=== PATIENT | male | born 1930 | race Caucasian/White ===

== ENCOUNTER 2016-08-28 14:03 | Emergency (ER) | payer MEDICARE ==
[~2016-08-28] VITALS: Ht 165.1 cm; Wt 75.0 kg
[~2016-08-28 14:03] MED LIST: ALFU10TA2 PO; DIVA500T7 PO; FINA5TAB4 PO; FOLI-49 PO; FURO80TA3 PO; LEVO25TA53 PO; POTA20TA96 PO; PROP10DR2 BOTH EYES; SERT-165 PO; SIMV40TA2 PO; TRAV4OP25 BOTH EYES; TRAZ50TA18 PO
[2016-08-28 14:18] VITALS: Ht 165.1 cm; Wt 75.0 kg
[2016-08-28] MEDS ORDERED: DIPHTH/TET/ACEL PERTUSS (ADULT) 0.5 ML VIAL IM* ONE (15:00)
[2016-08-28] MEDS ORDERED: HYDROCODONE/APAP (5/325) TAB PO ONE (15:00)
[2016-08-28] MEDS ORDERED: LIDOCAINE 1% (MDV) 20 ML INJ SC ONE (15:00)
--- NOTE | 2016-08-28 16:53 | RADRPT ---
PROCEDURE: CT brain without contrast CLINICAL INDICATION: Fall, head pain, abrasions TECHNIQUE: CT of the brain without contrast performed on a multidetector CT scanner, with multiplan ar reformats. One or more of the following dose reduction techniques were used: Automated exposure control, adjustment in mA and / or kV according to patient size, use of iterative reconstructive carlos hnique. CTDIvol = 39 mGy; DLP = 555 mGy-cm. COMPARISON: 07/01/2016 FINDINGS: No acute intracranial hemorrhage is identified. No extra-axial fluid collection is seen. There is no mass effect. No midline shift is identified. Ventricles and sulci are mild to moderate enlarged compatible with volume loss. There are minimal areas of hypodensity in the periventricular - deep white matter which are nonspeci fic but suggestive of chronic small vessel ischemic changes. Hernandez-white differentiation is preserve d. Atherosclerotic calcifications of the intracranial internal carotid arteries are noted. Right mastoidectomy defect again noted. Mild partial bilateral ethmoid air cell opacification noted . IMPRESSION: 1. No evidence of acute intracranial pathology. 2. Mild to moderate volume loss, with minimal chronic small vessel ischemic changes. RPTAT: VV .Abdifatah Rose MD, Date Time Electronically viewed and signed by .Abdifatah Rose MD, on 08/28/2016 16:53 .O/
--- NOTE | 2016-08-28 16:57 | RADRPT ---
PROCEDURE: Left hand series CLINICAL INDICATION: Left hand pain. Laceration TECHNIQUE: AP, oblique, and lateral views of the left hand were obtained. COMPARISON: None FINDINGS: No acute fracture or dislocations are seen. Erosive osteoarthritic changes are seen of the second t hrough fifth PIP and DIP joints as well as the first interphalangeal joint. The remaining articular surfaces are normal. No soft tissue abnormalities are seen. IMPRESSION: 1. No acute fracture or dislocation. 2. Polyarticular erosive osteoarthritis as described above. RPTAT: HPNM Physician Masha Date Time Electronically viewed and signed by Physician Masha on 08/28/2016 16:56 /
--- NOTE | 2016-08-28 16:58 | ERD ---
ER Documentation Chief Complaint Date/Time DATE: 08/28/16 Chief Complaint Left hand pain/laceration s/p ground level mechanical fall HPI The patient is an 85-year-old male who presents to the Emergency Department with complaint of left hand pain and laceration s/p mechanical ground level fall. The patient reports that he was was walking along the sidewalk, when he looked away at a man walking quickly in front of him. In doing so, he didn't realize that there was an irregularity in the cement, with a crack, and he tripped and fell forward, onto his outstretched hands, and hitting his face. He had no loss of consciousness, no syncope, no seizure-like activity. No headache, dizziness or weakness. He does note presence of a flap laceration to the left palm, prompting his visit to the ED. The pain rates his current pain as 5/10, and describes it as aching in nature. It is localized to the site of the laceration. He denies any numbness, weakness of tingling of the distal extremities. Denies restricted range of motion. He denies any nausea or vomiting. Denies neck pain or neck stiffness. Denies chest pain, palpitations or shortness of breath. He has no other complaints at this time. Tetanus status unknown. ROS All systems reviewed and are negative except as per history of present illness. Medications Home Meds Reported Medications Potassium Chloride* (Potassium Chloride*) 20 Meq Tablet.er, 20 MEQ PO DAILY, TAB.SA 07/01/16 Levothyroxine Sodium* (Levothyroxine Sodium*) 25 Mcg Tablet, 25 MCG PO BEFORE BREAKFAST, #30 TAB 04/02/16 Alfuzosin Hcl* (Alfuzosin Hcl*) 10 Mg Tab.er.24h, 10 MG PO DAILY, #30 TAB.SA 03/14/16 Finasteride* (Finasteride*) 5 Mg Tablet, 5 MG PO DAILY, TAB 03/14/16 Furosemide* (Furosemide*) 80 Mg Tablet, 80 MG PO DAILY, #30 TAB 03/14/16 Folic Acid* (Folic Acid*) 1 Mg Tablet, 1 MG PO BID, TAB 03/14/16 Propylene Glycol/Peg 400 (SYSTANE GEL EYE DROPS) 10 Ml Drops.gel, 1 DROP BOTH EYES QID, #1 BOTTLE 03/14/16 Travoprost* (Travatan*) 0.004%-2.5 Ml Opht, 1 DROP BOTH EYES QHS, #1 BOTTLE 03/14/16 Simvastatin* (Zocor*) 40 Mg Tablet, 40 MG PO QHS, #30 TAB 03/14/16 Trazodone Hcl* (Trazodone Hcl*) 50 Mg Tablet, 50 MG PO HS, TAB 06/24/14 Sertraline Hcl* (Sertraline Hcl*) 100 Mg Tablet, 200 MG PO QHS, TAB 06/24/14 Divalproex Sodium* (Depakote*) 500 Mg Tablet.dr, 1000 MG PO QHS, TAB 06/24/14 Allergies Allergies: Coded Allergies: Sulfa (Sulfonamide Antibiotics) (Unverified Allergy, Severe, HIVES, 07/01/16 ) PMhx/Soc History of Surgery: Yes (TONSILS, ADNOIDS,KIDNEY STONE, STENT) Anesthesia Reaction: No Hx Neurological Disorder: No Hx Respiratory Disorders: No Hx Cardiac Disorders: No Hx Psychiatric Problems: Yes (BIPOLAR) Hx Miscellaneous Medical Probl: Yes (frequent falls, bipolar d/o,prostatism, ahterosclrotic dse,kideny stone kelli) Hx Alcohol Use: No Hx Substance Use: No Hx Tobacco Use: No Physical Exam Vitals Vital Signs Date Time Temp Pulse Resp B/P Pulse Ox O2 Delivery O2 Flow Rate FiO2 08/28/16 17:50 97.9 60 18 152/72 99 Room Air 08/28/16 14:18 98.2 66 20 139/65 97 Physical Exam GENERAL: Well-developed, well-nourished, in no acute distress HEENT: Head is normocephalic. No hematomas. Small superficial abrasions to philtrum region. No scleral pallor or icterus. Pupils equal, round and reactive to light. Extraocular movements intact. Conjunctiva pink. No raccoon eyes. No nasal CSF leak. No merritt sign. No hemotympanum. Moist mucous membranes. No pharyngeal erythema or exudates. Uvula is midline. No dental mobility or avulsion. No intraoral trauma. NECK: Supple. No tenderness. No c-spine tenderness/step offs. RESPIRATORY: Lungs are clear to auscultation bilaterally. Equal breath sounds. Normal expiratory effort. CARDIOVASCULAR: Regular rate and rhythm. No murmurs. BACK: No midline tenderness. EXTREMITIES: No clubbing, cyanosis, or edema. Normal skin perfusion. Moving all extremities. No focal swelling or erythema. Distal pulses are palpable, 2+ bilaterally. Capillary refill is less than 2 seconds. NEUROLOGIC: The patient is alert, awake, and oriented x 3. No focal neurologic deficits. Cranial nerves are grossly intact. Speech is normal. Motor and sensation grossly intact. Patient ambulatory in ED. INTEGUMENT: 2 cm flap laceration to the palm of the left hand. Few superficial abrasions to the palm of the left hand. Superficial abrasion to the area of the philtrum. No intraoral lacerations or abrasions. PSYCHIATRIC: Appropriate; Cooperative. Results 24 hrs Current Medications Medications (Trade) Dose Ordered Sig/Saul Route PRN Reason Start Time Stop Time Status Last Admin Dose Admin Diphtheria/ Tetanus/Acell Pertussis (Adacel) 0.5 ml ONCE ONCE IM* 08/28/16 15:00 08/28/16 15:01 DC 08/28/16 15:02 Lidocaine (Xylocaine 1% (Mdv) 20 ml) 20 ml ONCE ONCE SC 08/28/16 15:00 08/28/16 15:01 DC Acetaminophen/ Hydrocodone Bitart ([place] (5/325)) 1 tab ONCE ONCE PO 08/28/16 15:00 08/28/16 15:01 DC 08/28/16 15:00 Procedures/MDM DIAGNOSTIC TESTS AND INTERPRETATION: PROCEDURE: CT brain without contrast CLINICAL INDICATION: Fall, head pain, abrasions TECHNIQUE: CT of the brain without contrast performed on a multidetector CT scanner, with multiplanar reformats. One or more of the following dose reduction techniques were used: Automated exposure control, adjustment in mA and / or kV according to patient size, use of iterative reconstructive technique. CTDIvol = 39 mGy; DLP = 555 mGy-cm. COMPARISON: 07/01/2016 FINDINGS: No acute intracranial hemorrhage is identified. No extra-axial fluid collection is seen. There is no mass effect. No midline shift is identified. Ventricles and sulci are mild to moderate enlarged compatible with volume loss. There are minimal areas of hypodensity in the periventricular - deep white matter which are nonspecific but suggestive of chronic small vessel ischemic changes. Hernandez-white differentiation is preserved. Atherosclerotic calcifications of the intracranial internal carotid arteries are noted. Right mastoidectomy defect again noted. Mild partial bilateral ethmoid air cell opacification noted. IMPRESSION: 1. No evidence of acute intracranial pathology. 2. Mild to moderate volume loss, with minimal chronic small vessel ischemic changes. .Abdifatah Rose MD, Date Time Electronically viewed and signed by .Abdifatah Rose MD, on 08/28/2016 16:53 PROCEDURE: CT cervical spine without contrast. CLINICAL INDICATION: Neck trauma/injury TECHNIQUE: CT of the cervical spine without contrast was performed on a multidetector CT scanner, with multiplanar reformats. One or more of the following dose reduction techniques were used: Automated exposure control, adjustment in mA and / or kV according to patient size, use of iterative reconstructive technique. CTDIvol = 22 mGy and DLP = 415 mGy-cm. COMPARISON: 07/01/2016 FINDINGS: No fracture or dislocation is identified. There is preservation of the lordosis of the cervical spine. There is trace anterolisthesis at C4-5, and C7- T1. Vertebral bodies are grossly maintained in height. There are atlantoaxial joint degenerative changes, multilevel anterior spondylosis, and disk space narrowing, more pronounced, severe at C3-4 posteriorly and at C6-7. C2-3: There is a posterior disk/osteophyte and ligamentum flavum hypertrophy. There is mild central canal stenosis. There are uncovertebral osteophytes and facet arthropathy with mild right, mild-moderate left foraminal narrowing. C3-4: There is a posterior disk/osteophyte and ligamentum flavum hypertrophy. There is moderate central canal stenosis. There are uncovertebral osteophytes and facet arthropathy with moderate to severe bilateral foraminal narrowing. C4-5: There is a posterior disk/osteophyte and ligamentum flavum hypertrophy. There is mild to moderate central canal stenosis. There are uncovertebral osteophytes and facet arthropathy with moderate to severe right foraminal narrowing. C5-6: There is a posterior disk/osteophyte. No central canal stenosis is identified. There are uncovertebral osteophytes and facet arthropathy with moderate to severe right, mild left foraminal narrowing. C6-7: There is a posterior disk/osteophyte. No central canal stenosis is identified. There are uncovertebral osteophytes and facet arthropathy with mild right, moderate left foraminal narrowing. C7-T1: There is no central canal stenosis. There is facet arthropathy. There is no foraminal narrowing. IMPRESSION: 1. No fracture/dislocation identified. 2. Cervical spondylosis with multilevel mild to moderate central canal stenoses , and multilevel foraminal narrowing detailed above. .Abdifatah Rose MD, Date Time Electronically viewed and signed by .Abdifatah Rose MD, on 08/28/2016 17:00 PROCEDURE: Left wrist series CLINICAL INDICATION: Left wrist pain. Laceration TECHNIQUE: AP, oblique, and lateral views of the left wrist were obtained. COMPARISON: None FINDINGS:No acute fracture or dislocations are seen. The osseous structures are well mineralized. The articular surfaces are normal. No soft tissue abnormalities are seen. IMPRESSION:Unremarkable left wrist series. Physician Masha Date Time Electronically viewed and signed by Physician Masha on 08/28/2016 16 :58 PROCEDURE: Left hand series CLINICAL INDICATION: Left hand pain. Laceration TECHNIQUE: AP, oblique, and lateral views of the left hand were obtained. COMPARISON: None FINDINGS:No acute fracture or dislocations are seen. Erosive osteoarthritic changes are seen of the second through fifth PIP and DIP joints as well as the first interphalangeal joint. The remaining articular surfaces are normal. No soft tissue abnormalities are seen. IMPRESSION: 1. No acute fracture or dislocation. 2. Polyarticular erosive osteoarthritis as described above. Physician Masha Date Time Electronically viewed and signed by Physician Masha on 08/28/2016 16 :56 PROCEDURE: Right hand series CLINICAL INDICATION: Right hand pain. Laceration TECHNIQUE: AP, lateral, and oblique views of the right hand were obtained COMPARISON: None FINDINGS:No acute fracture or dislocation is seen. Erosive osteoarthritic changes are seen of the second through fifth PIP and DIP joints as well as the first interphalangeal joint. The soft tissue structures are intact. IMPRESSION: 1. No acute fracture or dislocation. 2. Polyarticular erosive osteoarthritic changes as detailed above Physician Masha Date Time Electronically viewed and signed by Physician Masha on 08/28/2016 16 :59 PROCEDURE NOTE: Laceration repair. INDICATIONS: 2 cm flap laceration to the palmar region of the left hand. CONSENT: Consent was obtained from the patient prior to the procedure. Indications, risks and benefits were explained at length. PROCEDURAL SUMMARY: A time out protocol was performed prior to initiating the procedure. The patient was positioned appropriately. The site was anesthetized with 4 mL of 1% lidocaine without epinephrine. Normal saline and Betadine were used for wound irrigation. The wound was then explored, and no foreign body visualized, no tendon injury. The area was prepared and draped in the usual sterile manner with the wound exposed. Four 4-0 simple interrupted Prolene sutures are placed with good wound closure and good wound approximation. Bleeding was minimal. The patient tolerated the procedure well without complications. The wound was dressed with bacitracin and sterile gauze. Standard post procedure care was explained and return precautions were given. On re-evaluation, the patient was resting comfortable with no pain localized to the site of injury. He was neurovascularly intact post-procedure. MEDICAL DECISION MAKING: The patient is an 85-year-old male presenting to the Emergency Department with a left hand laceration and facial abrasions s/p mechanical fall. Otherwise, the patient had no significant deformity, step-offs , altered mental status, or neurologic deficits on physical examination. CT head performed revealed no acute intracranial hemorrhage. No clinical evidence of significant head injury, basilar skull fracture, intracranial bleeding, spinal cord injury or any other emergent medical condition. CT C-spine with no acute findings. X-ray imaging with no fractures, dislocations or subluxations. The patient's condition was stable throughout their stay in the emergency department without any neurologic deficits present. Upon re-evaluation, the patient reports no new complaints. The patient's hand laceration was stapled. He had good wound closure and wound approximation, and tolerated the procedure well. The patient was neurovascularly and neurologically intact prior to and status post laceration repair. Standard post-procedure care was explained to the patient at length. Upon my review and interpretation of the patient's presentation, I believe that the patient's symptoms are most consistent with left hand laceration, facial abrasions, closed head injury s/p mechanical fall. At this time the patient is in stable condition, and no signs of altered mental status, and therefore can be discharged home with strict return precautions for signs of deteriorating or worsening condition, including vomiting, altered mental status, neurologic deficit, headache, persistent fever above 100.4 F, loss of consciousness, syncope, deformities, seizure. The patient is instructed to follow up with his primary care provider within 1-2 days for wound check, reevaluation and further management, and suture removal in 14 days, or return to the ER sooner for any new or worsening symptoms. I shared my medical decision making and plan with the patient and he verbally understands and agrees with the plan for further observation and care as an outpatient. At the time of discharge, all questions were answered. Departure Diagnosis: Primary Impression: Laceration of left hand Encounter type: initial encounter Qualified Code: S61.412A - Laceration of left hand, initial encounter Additional Impressions: Fall Encounter type: initial encounter Qualified Code: W19.XXXA - Fall, initial encounter Facial abrasion Encounter type: initial encounter Qualified Code: S00.81XA - Facial abrasion , initial encounter Condition: Stable Patient Instructions: Caring for Your Wound, Fall, Mechanical, Laceration, Hand , Wound Care Additional Instructions: Follow up in 2 days for wound check, reevaluation and further management. Return to the ED sooner for any new or worsening symptoms. ARIS SWARTZ PA-C Aug 28, 2016 16:58
--- NOTE | 2016-08-28 16:58 | RADRPT ---
PROCEDURE: Left wrist series CLINICAL INDICATION: Left wrist pain. Laceration TECHNIQUE: AP, oblique, and lateral views of the left wrist were obtained. COMPARISON: None FINDINGS: No acute fracture or dislocations are seen. The osseous structures are well mineralized. The artic ular surfaces are normal. No soft tissue abnormalities are seen. IMPRESSION: Unremarkable left wrist series. RPTAT: HPNM Physician Masha Date Time Electronically viewed and signed by Brendan Guido Physician on 08/28/2016 16:58 /
--- NOTE | 2016-08-28 17:00 | RADRPT ---
PROCEDURE: CT cervical spine without contrast. CLINICAL INDICATION: Neck trauma/injury TECHNIQUE: CT of the cervical spine without contrast was performed on a multidetector CT scanner, w ith multiplanar reformats. One or more of the following dose reduction techniques were used: Automa alexander exposure control, adjustment in mA and / or kV according to patient size, use of iterative recon structive technique. CTDIvol = 22 mGy and DLP = 415 mGy-cm. COMPARISON: 07/01/2016 FINDINGS: No fracture or dislocation is identified. There is preservation of the lordosis of the cervical spi ne. There is trace anterolisthesis at C4-5, and C7-T1. Vertebral bodies are grossly maintained in height. There are atlantoaxial joint degenerative changes, multilevel anterior spondylosis, and di sk space narrowing, more pronounced, severe at C3-4 posteriorly and at C6-7. C2-3: There is a posterior disk/osteophyte and ligamentum flavum hypertrophy. There is mild central canal stenosis. There are uncovertebral osteophytes and facet arthropathy with mild right, mild-mo derate left foraminal narrowing. C3-4: There is a posterior disk/osteophyte and ligamentum flavum hypertrophy. There is moderate daren tral canal stenosis. There are uncovertebral osteophytes and facet arthropathy with moderate to sev ere bilateral foraminal narrowing. C4-5: There is a posterior disk/osteophyte and ligamentum flavum hypertrophy. There is mild to mode rate central canal stenosis. There are uncovertebral osteophytes and facet arthropathy with moderat e to severe right foraminal narrowing. C5-6: There is a posterior disk/osteophyte. No central canal stenosis is identified. There are unc overtebral osteophytes and facet arthropathy with moderate to severe right, mild left foraminal narr owing. C6-7: There is a posterior disk/osteophyte. No central canal stenosis is identified. There are un covertebral osteophytes and facet arthropathy with mild right, moderate left foraminal narrowing. C7-T1: There is no central canal stenosis. There is facet arthropathy. There is no foraminal narro wing. IMPRESSION: 1. No fracture/dislocation identified. 2. Cervical spondylosis with multilevel mild to moderate central canal stenoses, and multilevel for aminal narrowing detailed above. RPTAT: VV .Abdifatah Rose MD, MD Date Time Electronically viewed and signed by .Abdifatah Rose MD, on 08/28/2016 17:00 .O/
--- NOTE | 2016-08-28 17:00 | RADRPT ---
PROCEDURE: Right hand series CLINICAL INDICATION: Right hand pain. Laceration TECHNIQUE: AP, lateral, and oblique views of the right hand were obtained COMPARISON: None FINDINGS: No acute fracture or dislocation is seen. Erosive osteoarthritic changes are seen of the second thr ough fifth PIP and DIP joints as well as the first interphalangeal joint. The soft tissue structure s are intact. IMPRESSION: 1. No acute fracture or dislocation. 2. Polyarticular erosive osteoarthritic changes as detailed above. RPTAT: HPNM Physician Masha Date Time Electronically viewed and signed by Physician Masha on 08/28/2016 16:59 /
[2016-08-28 17:50] VITALS: BP 152/72; PULSE 60; RESP 18; TEMP 97.9
== END 2016-08-28 17:50 | disposition home or self-care (01) ==
LOC: FTE 14:03
DX: S61.412A Laceration without foreign body of left hand, initial encounter (principal); S00.81XA Abrasion of other part of head, initial encounter; E03.9 Hypothyroidism, unspecified; R51 Headache; W18.39XA Other fall on same level, initial encounter; Y92.9 Unspecified place or not applicable; Z23 Encounter for immunization
CPT/HCPCS: 70450; 72125; 90471; 90715

== ENCOUNTER 2016-09-01 02:41 | Emergency (ER) | payer MEDICARE ==
[~2016-09-01] VITALS: Ht 165.1 cm; Wt 78.5 kg
[2016-09-01 02:51] VITALS: Ht 165.1 cm; Wt 78.5 kg
[2016-09-01] MEDS ORDERED: CLIN-73 PO (04:30)
--- NOTE | 2016-09-01 04:30 | ERD ---
ER Documentation Chief Complaint Date/Time DATE: 09/01/16 TIME: 04:26 Chief Complaint left hand wound recheck for sutures HPI 85-year-old male is here in emergency department for a wound check, patient had sutures placed on the left hand, patient denies any discharge from the wound, patient denies any fever or chills. Patient just saw some redness on affected area is worried about it. She denies any numbness or tingling. ROS All systems reviewed and are negative except as per history of present illness. Medications Home Meds Reported Medications Potassium Chloride* (Potassium Chloride*) 20 Meq Tablet.er, 20 MEQ PO DAILY, TAB.SA 07/01/16 Levothyroxine Sodium* (Levothyroxine Sodium*) 25 Mcg Tablet, 25 MCG PO BEFORE BREAKFAST, #30 TAB 04/02/16 Alfuzosin Hcl* (Alfuzosin Hcl*) 10 Mg Tab.er.24h, 10 MG PO DAILY, #30 TAB.SA 03/14/16 Finasteride* (Finasteride*) 5 Mg Tablet, 5 MG PO DAILY, TAB 03/14/16 Furosemide* (Furosemide*) 80 Mg Tablet, 80 MG PO DAILY, #30 TAB 03/14/16 Folic Acid* (Folic Acid*) 1 Mg Tablet, 1 MG PO BID, TAB 03/14/16 Propylene Glycol/Peg 400 (SYSTANE GEL EYE DROPS) 10 Ml Drops.gel, 1 DROP BOTH EYES QID, #1 BOTTLE 03/14/16 Travoprost* (Travatan*) 0.004%-2.5 Ml Opht, 1 DROP BOTH EYES QHS, #1 BOTTLE 03/14/16 Simvastatin* (Zocor*) 40 Mg Tablet, 40 MG PO QHS, #30 TAB 03/14/16 Trazodone Hcl* (Trazodone Hcl*) 50 Mg Tablet, 50 MG PO HS, TAB 06/24/14 Sertraline Hcl* (Sertraline Hcl*) 100 Mg Tablet, 200 MG PO QHS, TAB 06/24/14 Divalproex Sodium* (Depakote*) 500 Mg Tablet.dr, 1000 MG PO QHS, TAB 06/24/14 Allergies Allergies: Coded Allergies: Sulfa (Sulfonamide Antibiotics) (Unverified Allergy, Severe, HIVES, 07/01/16 ) PMhx/Soc History of Surgery: Yes (pacemaker, tonsillectomy, kidney stone removed) Anesthesia Reaction: No Hx Neurological Disorder: No Hx Respiratory Disorders: No Hx Cardiac Disorders: No Hx Psychiatric Problems: Yes (BIPOLAR) Hx Miscellaneous Medical Probl: Yes (frequent falls, bipolar d/o,prostatism, ahterosclrotic dse,kideny stone kelli) Hx Alcohol Use: No Hx Substance Use: No Hx Tobacco Use: No Smoking Status: Never smoker FmHx Family History: No coronary disease, No diabetes, No other Physical Exam Vitals Vital Signs Date Time Temp Pulse Resp B/P Pulse Ox O2 Delivery O2 Flow Rate FiO2 09/01/16 02:51 98.5 65 18 146/70 98 Physical Exam GENERAL: The patient is well developed and appropriate for usual state of health, in no apparent distress. CHEST: Clear to auscultation bilaterally. There are no rales, wheezes or rhonchi. HEART: Regular rate and rhythm. No murmurs, clicks, rubs or gallops. No S3 or S4. ABDOMEN: Soft, nontender and nondistended. Good bowel sounds. No rebound or guarding. No gross peritonitis. No gross organomegaly or masses. No Morgan sign or McBurney point tenderness. BACK: No midline or flank tenderness. EXTREMITIES: Equal pulses bilaterally. There is no peripheral clubbing, cyanosis or edema. No focal swelling or erythema. Full range of motion. Grossly neurovascularly intact. NEURO: Alert and oriented. Cranial nerves 2-12 intact. Motor strength in all 4 extremities with 5/5 strength. Sensation grossly intact. Normal speech and gait. SKIN: Noted left hand wound sutures in place, with mild redness on affected area , patient also has a wound on the left leg area which has mild erythema and some discharge from the area, no fluctuance noted. There is no apparent rash or petechia. The skin is warm and dry. HEMATOLOGIC AND LYMPHATIC: There is no evidence of excessive bruising or lymphedema. No gross cervical, axillary, or inguinal lymphadenopathy. Procedures/MDM Medical decision making: Patient's wound is healing well, sutures to be removed in 4-5 days. Patient has a wound on the left lower leg area is infected, will be given antibiotics for this. Patient does not have any symptoms of any neurovascular complaints. No cellulitis. No symptoms of compartment syndrome. No symptoms of gaping of the wound. Patient was given for clindamycin to help with symptoms, advised about the primary care doctor in 4 days for suture removal. Patient was advised to return to emergency department for worsening symptoms Departure Diagnosis: Primary Impression: Encounter for wound re-check Additional Impressions: Hand laceration Encounter type: initial encounter Laterality: left Qualified Code: S61.412A - Hand laceration, left, initial encounter Wound infection Condition: Stable Patient Instructions: Wound Care GIBRAN JOHANSEN NP Sep 01, 2016 04:30
== END 2016-09-01 05:10 | disposition home or self-care (01) ==
LOC: FTE 02:41
DX: Z48.01 Encounter for change or removal of surgical wound dressing (principal); S61.412D Laceration without foreign body of left hand, subsequent encounter; T81.4XXA Infection following a procedure, initial encounter; X58.XXXD Exposure to other specified factors, subsequent encounter; Y62.9 Failure of sterile precautions during unspecified surgical and medical care

== ENCOUNTER 2016-09-12 05:46 | Emergency (ER) | payer MEDICARE ==
[~2016-09-12] VITALS: Ht 162.6 cm; Wt 76.0 kg
[~2016-09-12 05:46] MED LIST changes: +CLIN-73 PO
[2016-09-12 05:48] VITALS: Ht 162.6 cm; Wt 76.0 kg
--- NOTE | 2016-09-12 08:03 | ERD ---
DATE OF SERVICE: HISTORY OF PRESENT ILLNESS: The patient is an 85-year-old male coming in for a wound check and kelli claudine of stitches of his palm. The patient had sutures placed 8 days ago after he sustained a lacerat ion to his palm. He has normal range of motion and has not had any pain at the site. PAST MEDICAL HISTORY: Denies any other medical problems. ALLERGIES: SULFA MEDICATIONS. SURGICAL HISTORY: Denies. SOCIAL HISTORY: Denies. REVIEW OF SYSTEMS: A 12-point review of systems was done. Refer to HPI for positives, all other sy stems are negative. PHYSICAL EXAMINATION: VITAL SIGNS: Temperature is 96.8, pulse 88, blood pressure is 126/70, respiratory 18, O2 saturation 98% on room air. Pain intensity of 0/10. GENERAL: The patient is well appearing, well nourished, in no acute distress. CHEST: Clear to auscultation bilaterally. There are no rales, wheezes or rhonchi. HEART: Regular rate and rhythm. No murmurs, clicks, rubs or gallops. No S3 or S4. EXTREMITIES: Equ al pulses bilaterally. There is no peripheral clubbing, cyanosis or edema. No focal swelling or eryt prashant. Full range of motion. Grossly neurovascularly intact. NEURO: Alert and oriented. Cranial nerves 2-12 intact. Motor strength in all 4 extremities with 5/5 strength. Sensation grossly intact. Normal speech and gait. Babinski negative. DTR 2+ throughout. SKIN: There is a healing laceration noted on his left palm. Four simple interrupted sutures are in place. There is no dehiscence, no surrounding erythema, no purulence. EMERGENCY ROOM COURSE: The site was cleaned. Four stitches were removed without complication. Pat ient tolerated the procedure well. The site was re-cleaned and Band-Aid applied. DIAGNOSIS: Suture removal. MEDICAL DECISION MAKING: I have a low suspicion for tendon or ligament injury, a low suspicion for deep abscess or deep infection, a low suspicion for neuro deficit. DISCHARGE: The patient was discharged stable. The patient was told if symptoms change or worsen, t o return to the ER. Otherwise all other questions were answered at the time of discharge. Discharg e summary was given at the time of departure. Patient understood and complied with the plan. Dictated By: BRISSA NAJERA jeremy CORTES/ROXY Conf#: [id number] DID#: [id number]
== END 2016-09-12 07:40 | disposition home or self-care (01) ==
LOC: FTE 05:46
DX: Z48.02 Encounter for removal of sutures (principal); E03.9 Hypothyroidism, unspecified; Z95.0 Presence of cardiac pacemaker
CPT/HCPCS: 99281

== ENCOUNTER 2016-10-22 13:05 | Inpatient (IN) | payer MEDICARE, BC ==
[~2016-10-22] VITALS: Ht 165.1 cm; Wt 82.0 kg
[2016-10-22 14:16] VITALS: BP 133/62; RESP 19
[2016-10-22] MEDS ORDERED: HYDROCODONE/APAP (10/325) TAB PO PRN ×2 (15:30)
[2016-10-22 15:50] VITALS: Ht 165.1 cm; Wt 82.0 kg
[2016-10-22] MEDS ORDERED: PIPER-TAZO 3.375 GM IV (PMX) 100 ML IVPB SCH ×2 (16:15→18:00)
[2016-10-22] MEDS ORDERED: PATIENT'S OWN MEDICATION BOTH EYES PRN ×2 (17:00)
[2016-10-22] MEDS: POTASSIUM CHLORIDE (SR) 20 MEQ TAB PO SCH (17:00)
[2016-10-22] MEDS ORDERED: VANCOMYCIN 1 GM (PMX) 250 ML IVPB SCH (17:00)
--- NOTE | 2016-10-22 17:25 | HP ---
DATE OF ADMISSION: 10/22/2016 IDENTIFYING DATA: The patient is an 85-year-old male admitted to the hospital with lower extremity cellulitis. HISTORICAL EVENTS: The patient has been followed in excess of 1 year for lower extremity swelling a t the wound care center. He was evaluated today when he presented with trauma to the right lower ex tremity. This occurred about 1 week ago with redness that ensued. It was felt that he had lower ex tremity cellulitis and hospitalization was recommended. He denies cough, wheezing and substernal ch est pain. He has had unchanged exertional dyspnea without radiating neck, arm or jaw discomfort. H e denies nausea, vomiting, abdominal pain, unusual constipation or diarrhea and denies symptoms of g astrointestinal bleeding. review of systems reveals mild difficulty initiating his urinary strea m without dysuria, flank pain, fever or chills. PAST MEDICAL HISTORY: Includes bipolar disorder, rosacea, history of prostatism, known coronary ar vasile disease, GERD, lower extremity edema, history of sleep apnea, edema and prior noted lower extre mity cellulitis and history of kidney stones. FAMILY HISTORY: Positive for bone cancer. SOCIAL HISTORY: He does smoke. MEDICATIONS: Include: 1. B12 at 100 mcg per day. 2. Trazodone 50 mg at night. 3. Protonix 40 mg a day. 4. Simvastatin 40 mg a day. 5. Zoloft 200 mg per day. 6. Depakote 500 mg 2 tablets at bedtime. 7. Finasteride 5 per day. 8. Lasix 20 mg per day. 9. K-Dur 20 mg per day. ALLERGIES: SULFA. PHYSICAL EXAMINATION: GENERAL: Elderly male in no acute distress. VITAL SIGNS: BP 122/80, pulse 70, respirations are 20, he was afebrile. EYES: Extraocular muscles were full. NOSE, MOUTH, AND THROAT: Normal. NECK: Supple. There was no jugular venous distention, thyroid enlargement or adenopathy. LUNGS: Reduced breath sounds without rales, wheezes or rhonchi. HEART: Rhythm regular, no murmur. No third or fourth sound. ABDOMEN: Nontender. Liver and spleen were not palpable. No masses or tenderness were noted. EXTREMITIES: Revealed some brawny edema. The skin was denuded involving the right tibia with surro unding erythema. There was no less striking dusky erythema involving the left lower extremity. Iain ves were nontender. Dorsalis pedis pulses were 2+. IMPRESSION: 1. Trauma to the right lower extremity and related soft tissue injury and cellulitis. 2. Bipolar disorder. 3. History of gastroesophageal reflux disease. PLAN: Will change his antibiotic regimen to vancomycin. Infectious disease will see. Venous vascu lar studies of the lower extremity will be obtained and will give Lovenox for DVT prophylaxis. Dictated By: DEEPIKA PINON/ROXY Conf#: [id number] DID#: [id number]
[2016-10-22] MEDS ORDERED: ZOLPIDEM 5 MG TAB PO PRN (17:30)
[2016-10-22] MEDS ORDERED: ACETAMINOPHEN 325 MG TAB PO PRN (17:30)
[2016-10-22] MEDS ORDERED: DOCUSATE SODIUM 100 MG CAP PO PRN (17:30)
[2016-10-22] MEDS ORDERED: ONDANSETRON 4 MG TAB PO PRN (17:30)
[2016-10-22] MEDS ORDERED: NACL 0.9% 3 ML SYG IV SCH (17:30)
[2016-10-22] MEDS ORDERED: SYSTANE GEL DROPS BOTH EYES PRN (17:37)
[2016-10-22] MEDS ORDERED: CYANOCOBALAMIN 100 MCG TAB PO ONE (18:00)
[2016-10-22] MEDS ORDERED: VANCOMYCIN IV PER PHARMACY XX SCH (18:00)
[2016-10-22] MEDS: FUROSEMIDE 40 MG TAB PO SCH (18:21)
[2016-10-22] MEDS: CHOLECALCIFEROL 2,000 UNIT CAP PO SCH (18:27)
[2016-10-22] MEDS ORDERED: CARBOXYMETHYLCELLULOSE 0.5% 0.1 ML OPH BOTH EYES PRN (18:30)
[2016-10-22] MEDS: VANCOMYCIN 1.5 GM in SOD CHLORIDE 0.9% 250 ML IVPB ONE ×2 (18:32→20:05)
[2016-10-22 19:52] VITALS: BP 122/60; RESP 18
--- NOTE | 2016-10-22 20:12 | RADRPT ---
PROCEDURE: US Lower extremity Venous. CLINICAL INDICATION: BLE callulites TECHNIQUE: Multiple sonographic images of the bilateral lower extremity deep venous system was obt ained utilizing grayscale, color-flow, compressive sonography and doppler imaging with augmentation. The images were reviewed on a PACS workstation. COMPARISON: March 14, 2016 FINDINGS: There is normal compressibility and flow within the bilateral common femoral, deep femoral, superfic ial femoral and popliteal veins. The deep veins the calf were incompletely visualized. IMPRESSION: No sonographic evidence for deep venous thrombosis in the bilateral lower extremities. Physician Tina Date Time Electronically viewed and signed by Physician Tina on 10/22/2016 20:12 ML/
[2016-10-22 20:18] LABS: ADD SCAN DIFF NO
[2016-10-22 20:19] LABS: BASOPHILS % 0.3 % (0.0-2.0); EOSINOPHILS # 0.2 10^3/ul (0.0-0.5); EOSINOPHILS % 2.8 % (0.0-7.0); HEMATOCRIT 27.8 % (42.0-52.0); HEMOGLOBIN 8.9 g/dl (14.0-18.0); LYMPHOCYTES # 1.6 10^3/ul (0.8-2.9); LYMPHOCYTES % 23.1 % (15.0-51.0); MEAN CORPUSCULAR HEMOGLOBIN 34.5 pg (29.0-33.0); MEAN CORPUSCULAR VOLUME 107.8 fl (82.0-101.0); MEAN PLATELET VOLUME 9.3 fl (7.4-10.4); MONOCYTE # 0.6 10^3/ul (0.3-0.9); MONOCYTES % 8.8 % (0.0-11.0); NEUTROPHIL # 4.4 10^3/ul (1.6-7.5); NEUTROPHILS % 64.6 % (39.0-77.0); PLATELET COUNT 205 10^3/UL (140-415); RED BLOOD COUNT 2.58 10^6/ul (4.70-6.10); RED CELL DISTRIBUTION WIDTH 12.6 % (11.5-14.5); WHITE BLOOD COUNT 6.8 10^3/ul (4.8-10.8)
[2016-10-22 20:29] LABS: INR 1.15; PROTIME 14.7 Sec (12.2-14.2); PT RATIO 1.1
[2016-10-22 20:30] LABS: PARTIAL THROMBOPLASTIN TIME 36.6 Sec (25.0-35.0)
[2016-10-22 20:33] LABS: ALBUMIN 4.1 g/dl (3.3-4.9); ALBUMIN/GLOBULIN RATIO 1.13; BILIRUBIN,INDIRECT 0.2 mg/dl (0-1.1); BILIRUBIN,TOTAL 0.2 mg/dl (0.2-1.3); CALCIUM 9.1 mg/dl (8.4-10.2); CREATININE 1.23 mg/dl (0.61-1.24); POTASSIUM 4.1 mmol/L (3.5-5.1); TOTAL PROTEIN 7.7 g/dl (6.1-8.1)
[2016-10-22] MEDS: ALFUZOSIN (SR) 10 MG TAB PO SCH ×2 (21:00→21:27)
[2016-10-22] MEDS: SACCHAROMYCES BOULARDII 250 MG CAP PO SCH (21:22)
[2016-10-22] MEDS: traZODone 50 MG TAB PO SCH (21:22)
[2016-10-22] MEDS: DIVALPROEX (EC) 500 MG TAB PO SCH (21:22)
[2016-10-22] MEDS: ATORVASTATIN 40 MG TAB PO SCH (21:23)
[2016-10-22] MEDS: SERTRALINE 100 MG TAB PO SCH (21:23)
[2016-10-22] MEDS: TRAVATAN 0.004% BOTH EYES SCH (21:24)
[2016-10-22] MEDS: FERROUS FUMARATE (SR) TAB PO SCH (21:27)
[2016-10-22] MEDS: PROPYLENE GLYCOL/PEG 15 ML OPH BOTH EYES SCH (21:27)
[2016-10-22 22:38] LABS: ADD UMIC NO; URINE BILIRUBIN (Dip) NEGATIVE (NEGATIVE); URINE BLOOD (Dip) NEGATIVE (NEGATIVE); URINE COLOR LT. YELLOW (YELLOW); URINE GLUCOSE (Dip) NEGATIVE (NEGATIVE); URINE KETONES (Dip) NEGATIVE (NEGATIVE); URINE LEUKOCYTE ESTERASE (Dip) NEGATIVE (NEGATIVE); URINE NITRITE (Dip) NEGATIVE (NEGATIVE); URINE TOTAL PROTEIN (Dip) NEGATIVE (NEGATIVE); URINE UROBILINOGEN (Dip) 0.2 E.U./dL (0.1-1.0)
[2016-10-22] MEDS: ENOXAPARIN 40 MG/0.4 ML SYG SC SCH (22:51)
--- NOTE | 2016-10-23 01:42 | RADRPT ---
PROCEDURE: XR Chest. CLINICAL INDICATION: Cellulitis TECHNIQUE: Single AP portable chest COMPARISON: 07/06/2016 Chest x-ray FINDINGS: Mild cardiomegaly. Dual chamber left chest pacemaker in place. . Atherosclerotic calcification of t he aorta. The lungs are clear without pleural effusion or focal consolidation. No pneumothorax. Th e osseous structures and soft tissues are unremarkable. IMPRESSION: 1. No evidence for active cardiopulmonary disease. RPTAT:AAJJ Maile Danielle Physician Date Time Electronically viewed and signed by Maile Danielle Physician on 10/23/2016 01:42 PRINCESS/
[2016-10-23] MEDS: PANTOPRAZOLE (EC) 40 MG TAB PO SCH (05:49)
[2016-10-23] MEDS: LEVOTHYROXINE 25 MCG TAB PO SCH (05:49)
[2016-10-23 05:57] LABS: ADD SCAN DIFF NO
[2016-10-23 06:02] LABS: BASOPHILS % 0.5 % (0.0-2.0); EOSINOPHILS # 0.2 10^3/ul (0.0-0.5); EOSINOPHILS % 3.4 % (0.0-7.0); HEMATOCRIT 25.6 % (42.0-52.0); HEMOGLOBIN 8.3 g/dl (14.0-18.0); LYMPHOCYTES # 1.6 10^3/ul (0.8-2.9); LYMPHOCYTES % 28.3 % (15.0-51.0); MEAN CORPUSCULAR HEMOGLOBIN 34.6 pg (29.0-33.0); MEAN CORPUSCULAR HGB CONC 32.4 g/dl (32.0-37.0); MEAN CORPUSCULAR VOLUME 106.7 fl (82.0-101.0); MEAN PLATELET VOLUME 10.4 fl (7.4-10.4); MONOCYTE # 0.5 10^3/ul (0.3-0.9); NEUTROPHIL # 3.3 10^3/ul (1.6-7.5); NEUTROPHILS % 58.6 % (39.0-77.0); PLATELET COUNT 202 10^3/UL (140-415); RED CELL DISTRIBUTION WIDTH 12.5 % (11.5-14.5); WHITE BLOOD COUNT 5.7 10^3/ul (4.8-10.8)
[2016-10-23 06:07] LABS: INR 1.17; PT RATIO 1.2
[2016-10-23 06:08] LABS: PARTIAL THROMBOPLASTIN TIME 42.2 Sec (25.0-35.0)
[2016-10-23 06:12] LABS: IRON 24 ug/dl (35-150)
[2016-10-23 06:13] LABS: MAGNESIUM 2.1 mg/dl (1.7-2.5); PHOSPHORUS 5.1 mg/dl (2.5-4.9)
[2016-10-23 06:21] LABS: TOTAL IRON BINDING CAPACITY 264 ug/dl (241-421)
[2016-10-23 07:30] VITALS: BP 120/60; RESP 22
[2016-10-23 07:57] LABS: ALBUMIN 3.6 g/dl (3.3-4.9)
[2016-10-23 07:58] LABS: POTASSIUM 3.9 mmol/L (3.5-5.1)
--- NOTE | 2016-10-23 07:59 | CONS ---
Date/Time of Note Date/Time of Note DATE: 10/23/16 TIME: 07:53 Assessment/Plan Assessment/Plan Chief Complaint/Hosp Course 1) RLE cellulitis hx of nasal MRSA continue with IV vanco will have case management check to see if his health plans cover sivextro which is an oral 6 day regimen (similar to linezolid but without the usual problem with lowering platelets or drug interactions) get wound cx of site and nasal swab for MRSA if sivextro is covered then can change to po likely tomorrow and hold only lipitor while on sivextro Problems: Consultation Date/Type/Reason Admit Date/Time Oct 22, 2016 at 13:05 Date of Consultation: Oct 23, 2016 Type of Consultation: ID Hx of Present Illness pt injured his RLE 1 week ago bumping a piece of furniture while rushing to answer the phone His leg swelled up more and became red He denies F, NS but states he always has chills No N, V, D He has a sore throat and coryza but no SOB except with exertion He has a cough sometimes when he eats No dysuria, CP, abd pain pt has chronic swelling to LE and goes to the anti-amputation clinic for it Past Medical History bipolar ds, CRI, p.neuropathy, GIB, BPH, GERD, sleep apnea, LE cellulitis, CAD, kidney stones Past Surgical History pacer Social History Smoking Status: Former smoker Exam/Review of Systems Vital Signs Vitals Vital Signs Date Time Temp Pulse Resp B/P Pulse Ox O2 Delivery O2 Flow Rate FiO2 10/23/16 07:30 98.1 61 22 120/60 95 Intake and Output 10/22/16 10/22/16 10/23/16 15:00 23:00 07:00 Intake Total 490 ml Output Total 900 ml Balance -410 ml Exam Constitutional: alert, oriented Head: normocephalic Eyes: nl conjunctiva, nl sclera ENMT: mucosa pink and moist Neck: supple Respiratory: clear to auscultation Cardiovascular: regular rate and rhythm Gastrointestinal: non-tender, soft Extremities: other (brawny changes to L lower calf, R lower calf has brawny changes with more redness to it and an open abriaded wound) Neurological: other (non focal) Results Result Diagram: 10/23/16 0450 10/22/162004 Results 24 hrs Laboratory Tests Test 10/22/16 20:05 10/22/16 20:45 10/23/16 04:50 White Blood Count 6.8 # 5.7 Red Blood Count 2.58 L 2.40 L Hemoglobin 8.9 L 8.3 L Hematocrit 27.8 L 25.6 L Mean Corpuscular Volume 107.8 H 106.7 H Mean Corpuscular Hemoglobin 34.5 H 34.6 H Mean Corpuscular Hemoglobin Concent 32.0 32.4 Red Cell Distribution Width 12.6 12.5 Platelet Count 205 202 Mean Platelet Volume 9.3 10.4 Neutrophils % 64.6 58.6 Lymphocytes % 23.1 28.3 Monocytes % 8.8 9.0 Eosinophils % 2.8 3.4 Basophils % 0.3 0.5 Nucleated Red Blood Cells % 0.0 0.0 Neutrophils # 4.4 3.3 Lymphocytes # 1.6 1.6 Monocytes # 0.6 0.5 Eosinophils # 0.2 0.2 Basophils # 0.0 0.0 Nucleated Red Blood Cells # 0.0 0.0 Prothrombin Time 14.7 H 15.0 H Prothrombin Time Ratio 1.1 1.2 INR International Normalized Ratio 1.15 1.17 Activated Partial Thromboplast Time 36.6 H 42.2 H Sodium Level 139 Potassium Level 4.1 Chloride Level 106 Carbon Dioxide Level 29 Anion Gap 8 Blood Urea Nitrogen 21 H Creatinine 1.23 Glucose Level 88 Calcium Level 9.1 Total Bilirubin 0.2 Direct Bilirubin 0.00 Indirect Bilirubin 0.2 Aspartate Amino Transf (AST/SGOT) 38 Alanine Aminotransferase (ALT/SGPT) 40 Alkaline Phosphatase 82 Total Protein 7.7 Albumin 4.1 Globulin 3.60 H Albumin/Globulin Ratio 1.13 Urine Color LT. YELLOW Urine Clarity CLEAR Urine pH 7.5 Urine Specific [place] 1.010 Urine Ketones NEGATIVE Urine Nitrite NEGATIVE Urine Bilirubin NEGATIVE Urine Urobilinogen 0.2 E.U./dL Urine Leukocyte Esterase NEGATIVE Urine Hemoglobin NEGATIVE Urine Glucose NEGATIVE Urine Total Protein NEGATIVE Erythrocyte Sedimentation Rate 108 H Phosphorus Level 5.1 H Magnesium Level 2.1 Iron Level 24 L Total Iron Binding Capacity 264 Percent Iron Saturation 9 L Ferritin 240.0 Vitamin B12 Level 607 Medications Medications Current Medications Acetaminophen/ Hydrocodone Bitart ([place] ()) 1 tab Q6H PRN PO MILD PAIN LEVEL 1-3; Start 10/22/16 at 15:30 Acetaminophen/ Hydrocodone Bitart ([place] (10/325)) 2 tab Q6H PRN PO MODERATE PAIN LEVEL 4-6; Start 10/22/16 at 15:30 Trazodone HCl (Desyrel) 50 mg HS PO Last administered on 10/22/16 21:22; Admin Dose 50 MG; Start 10/22/16 at 21:00 Pantoprazole (Protonix Tab) 40 mg DAILY@06 PO Last administered on 10/23/16 05 :49; Admin Dose 40 MG; Start 10/23/16 at 06:00 Sertraline HCl (Zoloft) 200 mg HS PO Last administered on 10/22/16 21:23; Admin Dose 200 MG; Start 10/22/16 at 21:00 Divalproex Sodium (Depakote) 1,000 mg HS PO Last administered on 10/22/16 21: 22; Admin Dose 1,000 MG; Start 10/22/16 at 21:00 Finasteride (Proscar) 5 mg DAILY PO ; Start 10/23/16 at 09:00 Furosemide (Lasix) 40 mg DAILY PO Last administered on 10/22/16 18:21; Admin Dose 40 MG; Start 10/22/16 at 17:00 Potassium Chloride (Klor-Con 20) 20 meq DAILY PO ; Start 10/22/16 at 17:00 Saccharomyces Boulardii (Florastor) 250 mg BID PO Last administered on 21:22; Admin Dose 250 MG; Start 10/22/16 at 21:00 Cholecalciferol (Vitamin D) 2,000 unit DAILY PO Last administered on 10/22/16 18:27; Admin Dose 2,000 UNIT; Start 10/22/16 at 17:00 Atorvastatin Calcium (Lipitor) 40 mg HS PO Last administered on 10/22/16 21:23 ; Admin Dose 40 MG; Start 10/22/16 at 21:00 Alfuzosin HCl (Uroxatral) 10 mg HS PO ; Start 10/22/16 at 21:00 Multivitamins Therapeutic (Theragran) 1 tab DAILY PO ; Start 10/23/16 at 09:00 Docusate Sodium/ Ferrous Fumarate (Len-Sequels) 1 tab BID PO Last administered on 10/22/16 21:27; Admin Dose 1 TAB; Start 10/22/16 at 21:00 Levothyroxine Sodium (Synthroid) 25 mcg DAILY@06 PO Last administered on 05:49; Admin Dose 25 MCG; Start 10/23/16 at 06:00 Enoxaparin Sodium (Lovenox) 40 mg DAILY SC Last administered on 10/22/16 22:51 ; Admin Dose 40 MG; Start 10/22/16 at 22:00 Ondansetron HCl (Zofran Tab) 4 mg Q6H PRN PO NAUSEA AND/OR VOMITING; Start at 17:30 Acetaminophen (Tylenol Tab) 650 mg Q6H PRN PO PAIN LEVEL 1-3 OR FEVER; Start at 17:30 Docusate Sodium (Colace) 100 mg Q12H PRN PO CONSTIPATION; Start 10/22/16 at 17: 30 Zolpidem Tartrate (Ambien) 5 mg QHS PRN PO SLEEP; Start 10/22/16 at 17:30 Polyethyl Glycol/ Propylene Glycol (Systane) 1 drop QID BOTH EYES Last administered on 10/22/16 21:27; Admin Dose 1 DROP; Start 10/22/16 at 21:00 Patient Own Medication 1 ea HS BOTH EYES Last administered on 10/22/16 21:24; Admin Dose 1 EA; Start 10/22/16 at 21:00 Patient Own Medication 1 ea PRN PRN BOTH EYES DRY EYES; Start 10/22/16 at 17:37 Vancomycin HCl (Vanco Iv Per Pharmacy) PER PHARMACY DOSING NOTE XX ; Start 10/22 at 18:00 Eye Lubricant (Refresh Plus) 1 drop Q6 PRN BOTH EYES dry eyes; Start 10/22/16 at 18:30 JAYLENE MICHEL MD Oct 23, 2016 07:59
[2016-10-23 08:00] LABS: BILIRUBIN,INDIRECT 0.3 mg/dl (0-1.1); BILIRUBIN,TOTAL 0.3 mg/dl (0.2-1.3); CREATININE 1.14 mg/dl (0.61-1.24)
[2016-10-23 08:01] LABS: CALCIUM 8.9 mg/dl (8.4-10.2); TOTAL PROTEIN 7.2 g/dl (6.1-8.1)
[2016-10-23 08:03] LABS: C-REACTIVE PROTEIN 2.3 mg/dl (0.0-0.9)
[2016-10-23] MEDS ORDERED: ENOXAPARIN 40 MG/0.4 ML SYG SC SCH (09:00)
[2016-10-23] MEDS: MULTIVITAMINS THERAPEUTIC TAB PO SCH (09:08)
[2016-10-23] MEDS: PROPYLENE GLYCOL/PEG 15 ML OPH BOTH EYES SCH ×4 (09:08→22:06)
[2016-10-23] MEDS: POTASSIUM CHLORIDE (SR) 20 MEQ TAB PO SCH (09:08)
[2016-10-23] MEDS: FERROUS FUMARATE (SR) TAB PO SCH ×2 (09:08→22:07)
[2016-10-23] MEDS: SACCHAROMYCES BOULARDII 250 MG CAP PO SCH ×2 (09:08→22:06)
[2016-10-23] MEDS: FUROSEMIDE 40 MG TAB PO SCH (09:09)
[2016-10-23] MEDS: CHOLECALCIFEROL 2,000 UNIT CAP PO SCH (09:09)
[2016-10-23] MEDS: FINASTERIDE 5 MG TAB PO SCH (09:10)
[2016-10-23] MEDS: ENOXAPARIN 40 MG/0.4 ML SYG SC SCH (09:14)
--- NOTE | 2016-10-23 09:32 | PN ---
Date/Time of Note Date/Time of Note DATE: 10/23/16 TIME: 09:30 Assessment/Plan VTE Prophylaxis VTE Prophylaxis Intervention: SCD's Lines/Catheters [facility] [place] [facility] Urinary Cath still in place: No Assessment/Plan Assessment/Plan 1. Cellulitis left leg, abx in place, ID eval, culture taken 2. Anemia, will start Ferrlecit, stool ob ordered, if Hct drops will hold Lovenox 3. Psych disorder stable Subjective 24 Hr Interval Summary Respiratory: No cough, No shortness of breath Cardiovascular: No chest pain Gastrointestinal: no complaints Genitourinary: no complaints Neurologic: other ("tops of legs ache") Exam/Review of Systems Vital Signs Vitals Vital Signs Date Time Temp Pulse Resp B/P Pulse Ox O2 Delivery O2 Flow Rate FiO2 10/23/16 07:30 98.1 61 22 120/60 95 Intake and Output 10/22/16 10/22/16 10/23/16 15:00 23:00 07:00 Intake Total 490 ml Output Total 900 ml Balance -410 ml Exam Neck: No jvd Respiratory: clear to auscultation Cardiovascular: regular rate and rhythm Gastrointestinal: soft Extremities: edema (trace edema and no calf tend) Results Result Diagram: 10/23/16 0450 10/23/16 0450 Results 24 hrs Laboratory Tests Test 10/22/16 20:05 10/22/16 20:45 10/23/16 04:50 White Blood Count 6.8 # 5.7 Red Blood Count 2.58 L 2.40 L Hemoglobin 8.9 L 8.3 L Hematocrit 27.8 L 25.6 L Mean Corpuscular Volume 107.8 H 106.7 H Mean Corpuscular Hemoglobin 34.5 H 34.6 H Mean Corpuscular Hemoglobin Concent 32.0 32.4 Red Cell Distribution Width 12.6 12.5 Platelet Count 205 202 Mean Platelet Volume 9.3 10.4 Neutrophils % 64.6 58.6 Lymphocytes % 23.1 28.3 Monocytes % 8.8 9.0 Eosinophils % 2.8 3.4 Basophils % 0.3 0.5 Nucleated Red Blood Cells % 0.0 0.0 Neutrophils # 4.4 3.3 Lymphocytes # 1.6 1.6 Monocytes # 0.6 0.5 Eosinophils # 0.2 0.2 Basophils # 0.0 0.0 Nucleated Red Blood Cells # 0.0 0.0 Prothrombin Time 14.7 H 15.0 H Prothrombin Time Ratio 1.1 1.2 INR International Normalized Ratio 1.15 1.17 Activated Partial Thromboplast Time 36.6 H 42.2 H Sodium Level 139 143 Potassium Level 4.1 3.9 Chloride Level 106 105 Carbon Dioxide Level 29 27 Anion Gap 8 15 # Blood Urea Nitrogen 21 H 23 H Creatinine 1.23 1.14 Glucose Level 88 88 Calcium Level 9.1 8.9 Total Bilirubin 0.2 0.3 Direct Bilirubin 0.00 0.00 Indirect Bilirubin 0.2 0.3 Aspartate Amino Transf (AST/SGOT) 38 63 #H Alanine Aminotransferase (ALT/SGPT) 40 32 Alkaline Phosphatase 82 76 Total Protein 7.7 7.2 Albumin 4.1 3.6 Globulin 3.60 H 3.60 H Albumin/Globulin Ratio 1.13 1.00 Urine Color LT. YELLOW Urine Clarity CLEAR Urine pH 7.5 Urine Specific [place] 1.010 Urine Ketones NEGATIVE Urine Nitrite NEGATIVE Urine Bilirubin NEGATIVE Urine Urobilinogen 0.2 E.U./dL Urine Leukocyte Esterase NEGATIVE Urine Hemoglobin NEGATIVE Urine Glucose NEGATIVE Urine Total Protein NEGATIVE Erythrocyte Sedimentation Rate 108 H Hemoglobin A1c 5.1 Phosphorus Level 5.1 H Magnesium Level 2.1 Iron Level 24 L Total Iron Binding Capacity 264 Percent Iron Saturation 9 L Ferritin 240.0 C-Reactive Protein 2.3 H Vitamin B12 Level 607 Medications Medications Current Medications Acetaminophen/ Hydrocodone Bitart ([place] (10/325)) 1 tab Q6H PRN PO MILD PAIN LEVEL 1-3; Start 10/22/16 at 15:30 Acetaminophen/ Hydrocodone Bitart ([place] (10/325)) 2 tab Q6H PRN PO MODERATE PAIN LEVEL 4-6; Start 10/22/16 at 15:30 Trazodone HCl (Desyrel) 50 mg HS PO Last administered on 10/22/16 21:22; Admin Dose 50 MG; Start 10/22/16 at 21:00 Pantoprazole (Protonix Tab) 40 mg DAILY@06 PO Last administered on 10/23/16 05 :49; Admin Dose 40 MG; Start 10/23/16 at 06:00 Sertraline HCl (Zoloft) 200 mg HS PO Last administered on 10/22/16 21:23; Admin Dose 200 MG; Start 10/22/16 at 21:00 Divalproex Sodium (Depakote) 1,000 mg HS PO Last administered on 10/22/16 21: 22; Admin Dose 1,000 MG; Start 10/22/16 at 21:00 Finasteride (Proscar) 5 mg DAILY PO Last administered on 10/23/16 09:10; Admin Dose 5 MG; Start 10/23/16 at 09:00 Furosemide (Lasix) 40 mg DAILY PO Last administered on 10/23/16 09:09; Admin Dose 40 MG; Start 10/22/16 at 17:00 Potassium Chloride (Klor-Con 20) 20 meq DAILY PO Last administered on 09:08; Admin Dose 20 MEQ; Start 10/22/16 at 17:00 Saccharomyces Boulardii (Florastor) 250 mg BID PO Last administered on 09:08; Admin Dose 250 MG; Start 10/22/16 at 21:00 Cholecalciferol (Vitamin D) 2,000 unit DAILY PO Last administered on 10/23/16 09:09; Admin Dose 2,000 UNIT; Start 10/22/16 at 17:00 Atorvastatin Calcium (Lipitor) 40 mg HS PO Last administered on 10/22/16 21:23 ; Admin Dose 40 MG; Start 10/22/16 at 21:00 Alfuzosin HCl (Uroxatral) 10 mg HS PO ; Start 10/22/16 at 21:00 Multivitamins Therapeutic (Theragran) 1 tab DAILY PO Last administered on 09:08; Admin Dose 1 TAB; Start 10/23/16 at 09:00 Docusate Sodium/ Ferrous Fumarate (Len-Sequels) 1 tab BID PO Last administered on 10/23/16 09:08; Admin Dose 1 TAB; Start 10/22/16 at 21:00 Levothyroxine Sodium (Synthroid) 25 mcg DAILY@06 PO Last administered on 05:49; Admin Dose 25 MCG; Start 10/23/16 at 06:00 Enoxaparin Sodium (Lovenox) 40 mg DAILY SC Last administered on 10/23/16 09:14 ; Admin Dose 40 MG; Start 10/22/16 at 22:00 Ondansetron HCl (Zofran Tab) 4 mg Q6H PRN PO NAUSEA AND/OR VOMITING; Start at 17:30 Acetaminophen (Tylenol Tab) 650 mg Q6H PRN PO PAIN LEVEL 1-3 OR FEVER; Start at 17:30 Docusate Sodium (Colace) 100 mg Q12H PRN PO CONSTIPATION; Start 10/22/16 at 17: 30 Zolpidem Tartrate (Ambien) 5 mg QHS PRN PO SLEEP; Start 10/22/16 at 17:30 Polyethyl Glycol/ Propylene Glycol (Systane) 1 drop QID BOTH EYES Last administered on 10/23/16 09:08; Admin Dose 1 DROP; Start 10/22/16 at 21:00 Patient Own Medication 1 ea HS BOTH EYES Last administered on 10/22/16 21:24; Admin Dose 1 EA; Start 10/22/16 at 21:00 Patient Own Medication 1 ea PRN PRN BOTH EYES DRY EYES; Start 10/22/16 at 17:37 Vancomycin HCl (Vanco Iv Per Pharmacy) PER PHARMACY DOSING NOTE XX ; Start 10/22 at 18:00 Eye Lubricant (Refresh Plus) 1 drop Q6 PRN BOTH EYES dry eyes; Start 10/22/16 at 18:30 DEEPIKA BOB MD Oct 23, 2016 09:32
[2016-10-23] MEDS: SOD FERRIC GLUC COMPLX 125 MG in SOD CHLORIDE 0.9% 100 ML IVPB SCH (12:05)
--- NOTE | 2016-10-23 12:36 | RADRPT ---
Vent Rate: 60 bpm RR Interval: 0 msec ME Interval: 232 msec QRS Duration: 158 msec QT Interval: 496 msec QTC Interval: 496 msec P-R-T [place]: 0 - -44 - 85 degrees AV sequential or dual chamber electronic pacemaker Electronically Signed By: Eligio Chaes [id number]
[2016-10-23 15:52] VITALS: BP 118/56; PULSE 60; RESP 20
[2016-10-23 20:22] VITALS: BP 130/60; RESP 18
[2016-10-23] MEDS: ALFUZOSIN (SR) 10 MG TAB PO SCH (21:00)
[2016-10-23] MEDS: TRAVATAN 0.004% BOTH EYES SCH (22:04)
[2016-10-23] MEDS: VANCOMYCIN 1.25 GM in SOD CHLORIDE 0.9% 250 ML IVPB SCH (22:04)
[2016-10-23] MEDS: ATORVASTATIN 40 MG TAB PO SCH (22:06)
[2016-10-23] MEDS: SERTRALINE 100 MG TAB PO SCH (22:06)
[2016-10-23] MEDS: DIVALPROEX (EC) 500 MG TAB PO SCH (22:06)
[2016-10-23] MEDS: traZODone 50 MG TAB PO SCH (22:06)
[2016-10-24] MEDS: PANTOPRAZOLE (EC) 40 MG TAB PO SCH (06:00)
[2016-10-24] MEDS: LEVOTHYROXINE 25 MCG TAB PO SCH (06:00)
[2016-10-24 06:03] LABS: ADD SCAN DIFF NO
[2016-10-24 06:21] LABS: BASOPHIL # 0.1 10^3/ul (0.0-0.1); EOSINOPHILS # 0.2 10^3/ul (0.0-0.5); EOSINOPHILS % 2.9 % (0.0-7.0); HEMATOCRIT 25.6 % (42.0-52.0); HEMOGLOBIN 8.5 g/dl (14.0-18.0); LYMPHOCYTES # 1.2 10^3/ul (0.8-2.9); LYMPHOCYTES % 22.7 % (15.0-51.0); MEAN CORPUSCULAR HEMOGLOBIN 34.8 pg (29.0-33.0); MEAN CORPUSCULAR HGB CONC 33.2 g/dl (32.0-37.0); MEAN CORPUSCULAR VOLUME 104.9 fl (82.0-101.0); MONOCYTE # 0.5 10^3/ul (0.3-0.9); MONOCYTES % 9.7 % (0.0-11.0); NEUTROPHIL # 3.3 10^3/ul (1.6-7.5); NEUTROPHILS % 63.1 % (39.0-77.0); PLATELET COUNT 206 10^3/UL (140-415); RED BLOOD COUNT 2.44 10^6/ul (4.70-6.10); RED CELL DISTRIBUTION WIDTH 12.4 % (11.5-14.5); WHITE BLOOD COUNT 5.2 10^3/ul (4.8-10.8)
[2016-10-24 06:38] LABS: CALCIUM 8.9 mg/dl (8.4-10.2); CREATININE 1.14 mg/dl (0.61-1.24); MAGNESIUM 2.1 mg/dl (1.7-2.5); POTASSIUM 4.2 mmol/L (3.5-5.1)
--- NOTE | 2016-10-24 07:10 | CONS ---
Date/Time of Note Date/Time of Note DATE: 10/24/16 TIME: 07:02 Assessment/Plan Assessment/Plan Chief Complaint/Hosp Course 1) RLE cellulitis hx of nasal MRSA continue with IV vanco will have case management check to see if his health plans cover sivextro which is an oral 6 day regimen (similar to linezolid but without the usual problem with lowering platelets or drug interactions) get wound cx of site and nasal swab for MRSA if sivextro is covered then can change to po likely tomorrow and hold only lipitor while on sivextro 10/24 - case management is working on his sivextro thru [facility], it is delayed since all of pt's secondary insurances were not on his face sheet continue with IV vanco at present due to positive blood cx his cellulitis is improved wound cx is likely growing a proteus which is most likely a contaminant nasal cx is still pending 2) Diarrhea 10/24 - stool for c.dif was sent pt is on a probiotic 3) GPC in blood cx 10/24 - will repeat blood cx today unsure if this is a contaminant or true infection but vanco should cover Problems: Consultation Date/Type/Reason Admit Date/Time Oct 23, 2016 at 10:15 Initial Consult Date 10/23/16 Type of Consultation: ID [id number] HR Interval Summary Free Text/Dictation pt had diarrhea overnight without abd pain no N, V, SOB no pain to leg Exam/Review of Systems Vital Signs Vitals Vital Signs Date Time Temp Pulse Resp B/P Pulse Ox O2 Delivery O2 Flow Rate FiO2 10/23/16 20:22 98.2 61 18 130/60 97 10/23/16 15:52 Room Air Intake and Output 10/23/16 10/23/16 10/24/16 15:00 23:00 07:00 Intake Total 1390 ml 650 ml Output Total 900 ml 400 ml Balance 490 ml 250 ml Exam Constitutional: alert, oriented Head: normocephalic Eyes: nl sclera ENMT: mucosa pink and moist Respiratory: clear to auscultation Cardiovascular: regular rate and rhythm Gastrointestinal: soft Extremities: other (R calf is less swollen and less red in intensity) Results Result Diagram: 10/24/16 0537 10/24/16 0537 Results 24 hrs Laboratory Tests Test 10/23/16 17:45 10/24/16 05:37 Stool Occult Blood NEGATIVE White Blood Count 5.2 Red Blood Count 2.44 L Hemoglobin 8.5 L Hematocrit 25.6 L Mean Corpuscular Volume 104.9 H Mean Corpuscular Hemoglobin 34.8 H Mean Corpuscular Hemoglobin Concent 33.2 Red Cell Distribution Width 12.4 Platelet Count 206 Mean Platelet Volume 10.0 Neutrophils % 63.1 Lymphocytes % 22.7 Monocytes % 9.7 Eosinophils % 2.9 Basophils % 1.0 Nucleated Red Blood Cells % 0.0 Neutrophils # 3.3 Lymphocytes # 1.2 Monocytes # 0.5 Eosinophils # 0.2 Basophils # 0.1 Nucleated Red Blood Cells # 0.0 Sodium Level 142 Potassium Level 4.2 Chloride Level 111 H Carbon Dioxide Level 26 Anion Gap 9 # Blood Urea Nitrogen 26 H Creatinine 1.14 Glucose Level 104 Calcium Level 8.9 Phosphorus Level 5.0 H Magnesium Level 2.1 Medications Medications Current Medications Acetaminophen/ Hydrocodone Bitart ([place] (10/325)) 1 tab Q6H PRN PO MILD PAIN LEVEL 1-3; Start 10/22/16 at 15:30 Acetaminophen/ Hydrocodone Bitart ([place] (10/325)) 2 tab Q6H PRN PO MODERATE PAIN LEVEL 4-6; Start 10/22/16 at 15:30 Trazodone HCl (Desyrel) 50 mg HS PO Last administered on 10/23/16 22:06; Admin Dose 50 MG; Start 10/22/16 at 21:00 Pantoprazole (Protonix Tab) 40 mg DAILY@06 PO Last administered on 10/24/16 06 :00; Admin Dose 40 MG; Start 10/23/16 at 06:00 Sertraline HCl (Zoloft) 200 mg HS PO Last administered on 10/23/16 22:06; Admin Dose 200 MG; Start 10/22/16 at 21:00 Divalproex Sodium (Depakote) 1,000 mg HS PO Last administered on 10/23/16 22: 06; Admin Dose 1,000 MG; Start 10/22/16 at 21:00 Finasteride (Proscar) 5 mg DAILY PO Last administered on 10/23/16 09:10; Admin Dose 5 MG; Start 10/23/16 at 09:00 Furosemide (Lasix) 40 mg DAILY PO Last administered on 10/23/16 09:09; Admin Dose 40 MG; Start 10/22/16 at 17:00 Potassium Chloride (Klor-Con 20) 20 meq DAILY PO Last administered on 09:08; Admin Dose 20 MEQ; Start 10/22/16 at 17:00 Saccharomyces Boulardii (Florastor) 250 mg BID PO Last administered on 22:06; Admin Dose 250 MG; Start 10/22/16 at 21:00 Cholecalciferol (Vitamin D) 2,000 unit DAILY PO Last administered on 10/23/16 09:09; Admin Dose 2,000 UNIT; Start 10/22/16 at 17:00 Atorvastatin Calcium (Lipitor) 40 mg HS PO Last administered on 10/23/16 22:06 ; Admin Dose 40 MG; Start 10/22/16 at 21:00 Alfuzosin HCl (Uroxatral) 10 mg HS PO ; Start 10/22/16 at 21:00 Multivitamins Therapeutic (Theragran) 1 tab DAILY PO Last administered on 09:08; Admin Dose 1 TAB; Start 10/23/16 at 09:00 Docusate Sodium/ Ferrous Fumarate (Len-Sequels) 1 tab BID PO Last administered on 10/23/16 22:07; Admin Dose 1 TAB; Start 10/22/16 at 21:00 Levothyroxine Sodium (Synthroid) 25 mcg DAILY@06 PO Last administered on 06:00; Admin Dose 25 MCG; Start 10/23/16 at 06:00 Enoxaparin Sodium (Lovenox) 40 mg DAILY SC Last administered on 10/23/16 09:14 ; Admin Dose 40 MG; Start 10/22/16 at 22:00 Ondansetron HCl (Zofran Tab) 4 mg Q6H PRN PO NAUSEA AND/OR VOMITING; Start at 17:30 Acetaminophen (Tylenol Tab) 650 mg Q6H PRN PO PAIN LEVEL 1-3 OR FEVER; Start at 17:30 Docusate Sodium (Colace) 100 mg Q12H PRN PO CONSTIPATION; Start 10/22/16 at 17: 30 Zolpidem Tartrate (Ambien) 5 mg QHS PRN PO SLEEP; Start 10/22/16 at 17:30 Polyethyl Glycol/ Propylene Glycol (Systane) 1 drop QID BOTH EYES Last administered on 10/23/16 22:06; Admin Dose 1 DROP; Start 10/22/16 at 21:00 Patient Own Medication 1 ea HS BOTH EYES Last administered on 10/23/16 22:04; Admin Dose 1 EA; Start 10/22/16 at 21:00 Patient Own Medication 1 ea PRN PRN BOTH EYES DRY EYES; Start 10/22/16 at 17:37 Vancomycin HCl (Vanco Iv Per Pharmacy) PER PHARMACY DOSING NOTE XX ; Start 10/22 at 18:00 Eye Lubricant 1 drop 1 drop Q6 PRN BOTH EYES dry eyes; Start 10/22/16 at 18:30 Ferric Sodium Gluconate Complex 125 mg/Sodium Chloride 110 ml @ 110 mls/hr Q24H IVPB Last administered on 10/23/16 12:05; Admin Dose 110 MLS/HR; Start at 11:00; Stop 10/27/16 at 11:59 Vancomycin HCl/ Sodium Chloride (Vancocin/NS) 250 ml @ 83.333 mls/ hr Q24H IVPB Last administered on 10/23/16 22:04; Admin Dose 83.333 MLS/HR; Start at 20:00 JAYLENE MICHEL MD Oct 24, 2016 07:10
[2016-10-24 07:49] VITALS: BP 148/71; RESP 20
[2016-10-24] MEDS: MULTIVITAMINS THERAPEUTIC TAB PO SCH (08:54)
[2016-10-24] MEDS: FINASTERIDE 5 MG TAB PO SCH (08:54)
[2016-10-24] MEDS: POTASSIUM CHLORIDE (SR) 20 MEQ TAB PO SCH (08:54)
[2016-10-24] MEDS: CHOLECALCIFEROL 2,000 UNIT CAP PO SCH (08:55)
[2016-10-24] MEDS: PROPYLENE GLYCOL/PEG 15 ML OPH BOTH EYES SCH ×4 (08:55→20:56)
[2016-10-24] MEDS: FUROSEMIDE 40 MG TAB PO SCH (08:55)
[2016-10-24] MEDS: FERROUS FUMARATE (SR) TAB PO SCH ×2 (08:55→23:47)
[2016-10-24] MEDS: SACCHAROMYCES BOULARDII 250 MG CAP PO SCH ×2 (08:55→20:56)
[2016-10-24] MEDS: ENOXAPARIN 40 MG/0.4 ML SYG SC SCH (09:00)
--- NOTE | 2016-10-24 10:53 | PN ---
Date/Time of Note Date/Time of Note DATE: 10/24/16 TIME: 10:49 Assessment/Plan VTE Prophylaxis VTE Prophylaxis Intervention: other (lovenox) Lines/Catheters IV [facility] [place] Urinary Cath still in place: No Assessment/Plan Assessment/Plan Cellulitis - improving with IV vanco. Would cultures pending - ID on board, awaiting case management to see if PO sivextro approved - await would culture results - home wound care will need to be arranged Positive blood culture - growing strep viridans, likely contaminant - repeat today, f/u results Anemia - stable - cont iron supplements - ok to cont lovenox Subjective 24 Hr Interval Summary Free Text/Dictation Patient feels well, wants to go home. Constitutional: improved, no complaints Exam/Review of Systems Vital Signs Vitals Vital Signs Date Time Temp Pulse Resp B/P Pulse Ox O2 Delivery O2 Flow Rate FiO2 10/24/16 07:49 98.8 59 20 148/71 95 10/23/16 15:52 Room Air Intake and Output 10/23/16 10/23/16 10/24/16 15:00 23:00 07:00 Intake Total 1390 ml 650 ml Output Total 900 ml 400 ml Balance 490 ml 250 ml Exam Constitutional: alert, oriented, well developed Psych: nl mood/affect, no complaints Respiratory: clear to auscultation, normal air movement Cardiovascular: nl pulses, regular rate and rhythm Gastrointestinal: nl liver, spleen, non-tender, soft Extremities: clubbing, cyanosis, edema, normal pulses, other (mild erythema, + warmth; sweling minimal; dressed), palpable cord, pitting pedal edema, tenderness Results Result Diagram: 10/24/16 0537 10/24/16 0537 Results 24 hrs Laboratory Tests Test 10/23/16 17:45 10/24/16 05:37 Stool Occult Blood NEGATIVE White Blood Count 5.2 Red Blood Count 2.44 L Hemoglobin 8.5 L Hematocrit 25.6 L Mean Corpuscular Volume 104.9 H Mean Corpuscular Hemoglobin 34.8 H Mean Corpuscular Hemoglobin Concent 33.2 Red Cell Distribution Width 12.4 Platelet Count 206 Mean Platelet Volume 10.0 Neutrophils % 63.1 Lymphocytes % 22.7 Monocytes % 9.7 Eosinophils % 2.9 Basophils % 1.0 Nucleated Red Blood Cells % 0.0 Neutrophils # 3.3 Lymphocytes # 1.2 Monocytes # 0.5 Eosinophils # 0.2 Basophils # 0.1 Nucleated Red Blood Cells # 0.0 Sodium Level 142 Potassium Level 4.2 Chloride Level 111 H Carbon Dioxide Level 26 Anion Gap 9 # Blood Urea Nitrogen 26 H Creatinine 1.14 Glucose Level 104 Calcium Level 8.9 Phosphorus Level 5.0 H Magnesium Level 2.1 Medications Medications Current Medications Acetaminophen/ Hydrocodone Bitart ([place] (10/325)) 1 tab Q6H PRN PO MILD PAIN LEVEL 1-3; Start 10/22/16 at 15:30 Acetaminophen/ Hydrocodone Bitart ([place] (10/325)) 2 tab Q6H PRN PO MODERATE PAIN LEVEL 4-6; Start 10/22/16 at 15:30 Trazodone HCl (Desyrel) 50 mg HS PO Last administered on 10/23/16 22:06; Admin Dose 50 MG; Start 10/22/16 at 21:00 Pantoprazole (Protonix Tab) 40 mg DAILY@06 PO Last administered on 10/24/16 06 :00; Admin Dose 40 MG; Start 10/23/16 at 06:00 Sertraline HCl (Zoloft) 200 mg HS PO Last administered on 10/23/16 22:06; Admin Dose 200 MG; Start 10/22/16 at 21:00 Divalproex Sodium (Depakote) 1,000 mg HS PO Last administered on 10/23/16 22: 06; Admin Dose 1,000 MG; Start 10/22/16 at 21:00 Finasteride (Proscar) 5 mg DAILY PO Last administered on 10/24/16 08:54; Admin Dose 5 MG; Start 10/23/16 at 09:00 Furosemide (Lasix) 40 mg DAILY PO Last administered on 10/24/16 08:55; Admin Dose 40 MG; Start 10/22/16 at 17:00 Potassium Chloride (Klor-Con 20) 20 meq DAILY PO Last administered on 08:54; Admin Dose 20 MEQ; Start 10/22/16 at 17:00 Saccharomyces Boulardii (Florastor) 250 mg BID PO Last administered on 08:55; Admin Dose 250 MG; Start 10/22/16 at 21:00 Cholecalciferol (Vitamin D) 2,000 unit DAILY PO Last administered on 10/24/16 08:55; Admin Dose 2,000 UNIT; Start 10/22/16 at 17:00 Atorvastatin Calcium (Lipitor) 40 mg HS PO Last administered on 10/23/16 22:06 ; Admin Dose 40 MG; Start 10/22/16 at 21:00 Alfuzosin HCl (Uroxatral) 10 mg HS PO ; Start 10/22/16 at 21:00 Multivitamins Therapeutic (Theragran) 1 tab DAILY PO Last administered on 08:54; Admin Dose 1 TAB; Start 10/23/16 at 09:00 Docusate Sodium/ Ferrous Fumarate (Len-Sequels) 1 tab BID PO Last administered on 10/24/16 08:55; Admin Dose 1 TAB; Start 10/22/16 at 21:00 Levothyroxine Sodium (Synthroid) 25 mcg DAILY@06 PO Last administered on 06:00; Admin Dose 25 MCG; Start 10/23/16 at 06:00 Enoxaparin Sodium (Lovenox) 40 mg DAILY SC Last administered on 10/24/16 09:00 ; Admin Dose 40 MG; Start 10/22/16 at 22:00 Ondansetron HCl (Zofran Tab) 4 mg Q6H PRN PO NAUSEA AND/OR VOMITING; Start at 17:30 Acetaminophen (Tylenol Tab) 650 mg Q6H PRN PO PAIN LEVEL 1-3 OR FEVER; Start at 17:30 Docusate Sodium (Colace) 100 mg Q12H PRN PO CONSTIPATION; Start 10/22/16 at 17: 30 Zolpidem Tartrate (Ambien) 5 mg QHS PRN PO SLEEP; Start 10/22/16 at 17:30 Polyethyl Glycol/ Propylene Glycol (Systane) 1 drop QID BOTH EYES Last administered on 10/24/16 08:55; Admin Dose 1 DROP; Start 10/22/16 at 21:00 Patient Own Medication 1 ea HS BOTH EYES Last administered on 10/23/16 22:04; Admin Dose 1 EA; Start 10/22/16 at 21:00 Patient Own Medication 1 ea PRN PRN BOTH EYES DRY EYES; Start 10/22/16 at 17:37 Vancomycin HCl (Vanco Iv Per Pharmacy) PER PHARMACY DOSING NOTE XX ; Start 10/22 at 18:00 Eye Lubricant 1 drop 1 drop Q6 PRN BOTH EYES dry eyes; Start 10/22/16 at 18:30 Ferric Sodium Gluconate Complex 125 mg/Sodium Chloride 110 ml @ 110 mls/hr Q24H IVPB Last administered on 10/23/16 12:05; Admin Dose 110 MLS/HR; Start at 11:00; Stop 10/27/16 at 11:59 Vancomycin HCl/ Sodium Chloride (Vancocin/NS) 250 ml @ 83.333 mls/ hr Q24H IVPB Last administered on 10/23/16 22:04; Admin Dose 83.333 MLS/HR; Start at 20:00 Mupirocin (Bactroban) 1 applic BID TOP ; Start 10/24/16 at 09:00 RUTH ANN RUTH MD Oct 24, 2016 10:53
[2016-10-24] MEDS: MUPIROCIN 2% 22 GM OINT TOP SCH ×2 (11:07→20:55)
[2016-10-24] MEDS: SOD FERRIC GLUC COMPLX 125 MG in SOD CHLORIDE 0.9% 100 ML IVPB SCH (11:07)
[2016-10-24 20:00] VITALS: BP 110/55; PULSE 60; RESP 20
[2016-10-24] MEDS: TRAVATAN 0.004% BOTH EYES SCH (20:54)
[2016-10-24] MEDS: VANCOMYCIN 1.25 GM in SOD CHLORIDE 0.9% 250 ML IVPB SCH (20:55)
[2016-10-24] MEDS: traZODone 50 MG TAB PO SCH (20:56)
[2016-10-24] MEDS: DIVALPROEX (EC) 500 MG TAB PO SCH (20:56)
[2016-10-24] MEDS: SERTRALINE 100 MG TAB PO SCH (20:56)
[2016-10-24] MEDS: ATORVASTATIN 40 MG TAB PO SCH (20:56)
[2016-10-24] MEDS: ALFUZOSIN (SR) 10 MG TAB PO SCH (21:00)
[2016-10-25] MEDS: LEVOTHYROXINE 25 MCG TAB PO SCH (06:00)
[2016-10-25] MEDS: PANTOPRAZOLE (EC) 40 MG TAB PO SCH (06:00)
[2016-10-25 06:46] LABS: ADD SCAN DIFF NO
[2016-10-25 06:51] LABS: BASOPHILS % 0.5 % (0.0-2.0); EOSINOPHILS # 0.1 10^3/ul (0.0-0.5); EOSINOPHILS % 2.5 % (0.0-7.0); HEMATOCRIT 25.1 % (42.0-52.0); HEMOGLOBIN 8.3 g/dl (14.0-18.0); LYMPHOCYTES # 0.9 10^3/ul (0.8-2.9); LYMPHOCYTES % 16.4 % (15.0-51.0); MEAN CORPUSCULAR HEMOGLOBIN 34.4 pg (29.0-33.0); MEAN CORPUSCULAR HGB CONC 33.1 g/dl (32.0-37.0); MEAN CORPUSCULAR VOLUME 104.1 fl (82.0-101.0); MEAN PLATELET VOLUME 9.5 fl (7.4-10.4); MONOCYTE # 0.5 10^3/ul (0.3-0.9); MONOCYTES % 9.3 % (0.0-11.0); NEUTROPHILS % 70.9 % (39.0-77.0); PLATELET COUNT 189 10^3/UL (140-415); RED BLOOD COUNT 2.41 10^6/ul (4.70-6.10); RED CELL DISTRIBUTION WIDTH 12.4 % (11.5-14.5); WHITE BLOOD COUNT 5.7 10^3/ul (4.8-10.8)
[2016-10-25 07:07] LABS: ALBUMIN 3.5 g/dl (3.3-4.9); ALBUMIN/GLOBULIN RATIO 1.06; CALCIUM 8.6 mg/dl (8.4-10.2); CREATININE 1.05 mg/dl (0.61-1.24); POTASSIUM 4.4 mmol/L (3.5-5.1); TOTAL PROTEIN 6.8 g/dl (6.1-8.1)
--- NOTE | 2016-10-25 07:29 | CONS ---
Date/Time of Note Date/Time of Note DATE: 10/25/16 TIME: 07:24 Assessment/Plan Assessment/Plan Chief Complaint/Hosp Course 1) RLE cellulitis hx of nasal MRSA continue with IV vanco will have case management check to see if his health plans cover sivextro which is an oral 6 day regimen (similar to linezolid but without the usual problem with lowering platelets or drug interactions) get wound cx of site and nasal swab for MRSA if sivextro is covered then can change to po likely tomorrow and hold only lipitor while on sivextro 10/24 - case management is working on his sivextro thru [facility], it is delayed since all of pt's secondary insurances were not on his face sheet continue with IV vanco at present due to positive blood cx his cellulitis is improved wound cx is likely growing a proteus which is most likely a contaminant nasal cx is still pending 10/25 - calf continues to improve, pseudomonas grew from cx but it has improved without treatment for this can change vanco to sivextro or to augmentin/doxy if sivextro is not covered nasal cx grew MRSA 2) Diarrhea 10/24 - stool for c.dif was sent pt is on a probiotic 10/25 - c.dif was neg 3) GPC in blood cx (strep viridans) 10/24 - will repeat blood cx today unsure if this is a contaminant or true infection but vanco should cover 10/25 - strep viridans from blood cx is likely a contaminant, no need for further investigation or treatment for this Problems: Consultation Date/Type/Reason Admit Date/Time Oct 23, 2016 at 10:15 Initial Consult Date 10/23/16 Type of Consultation: ID 24 HR Interval Summary Free Text/Dictation pt states he has practically no pain to R leg no N, V had some BM's no SOB Exam/Review of Systems Vital Signs Vitals Vital Signs Date Time Temp Pulse Resp B/P Pulse Ox O2 Delivery O2 Flow Rate FiO2 10/24/16 20:00 99.0 60 20 110/55 97 Room Air Intake and Output 10/24/16 10/24/16 10/25/16 15:00 23:00 07:00 Intake Total 110 ml 1600 ml 750 ml Output Total 700 ml 550 ml Balance 110 ml 900 ml 200 ml Exam Constitutional: alert ENMT: mucosa pink and moist Respiratory: clear to auscultation Cardiovascular: regular rate and rhythm Extremities: other (R calf has less redness) Results Result Diagram: 10/25/16 0636 10/25/16 0636 Results 24 hrs Laboratory Tests Test 10/25/16 06:36 White Blood Count 5.7 Red Blood Count 2.41 L Hemoglobin 8.3 L Hematocrit 25.1 L Mean Corpuscular Volume 104.1 H Mean Corpuscular Hemoglobin 34.4 H Mean Corpuscular Hemoglobin Concent 33.1 Red Cell Distribution Width 12.4 Platelet Count 189 Mean Platelet Volume 9.5 Neutrophils % 70.9 Lymphocytes % 16.4 Monocytes % 9.3 Eosinophils % 2.5 Basophils % 0.5 Nucleated Red Blood Cells % 0.0 Neutrophils # 4.0 Lymphocytes # 0.9 Monocytes # 0.5 Eosinophils # 0.1 Basophils # 0.0 Nucleated Red Blood Cells # 0.0 Sodium Level 141 Potassium Level 4.4 Chloride Level 109 Carbon Dioxide Level 26 Anion Gap 10 Blood Urea Nitrogen 23 H Creatinine 1.05 Glucose Level 99 Calcium Level 8.6 Total Bilirubin 0.0 L Direct Bilirubin 0.00 Indirect Bilirubin 0.0 Aspartate Amino Transf (AST/SGOT) 23 Alanine Aminotransferase (ALT/SGPT) 31 Alkaline Phosphatase 73 Total Protein 6.8 Albumin 3.5 Globulin 3.30 H Albumin/Globulin Ratio 1.06 Medications Medications Current Medications Acetaminophen/ Hydrocodone Bitart ([place] (10/325)) 1 tab Q6H PRN PO MILD PAIN LEVEL 1-3; Start 10/22/16 at 15:30 Acetaminophen/ Hydrocodone Bitart ([place] (10/325)) 2 tab Q6H PRN PO MODERATE PAIN LEVEL 4-6 Last administered on 10/25/16 01:07; Admin Dose 2 TAB; Start at 15:30 Trazodone HCl (Desyrel) 50 mg HS PO Last administered on 10/24/16 20:56; Admin Dose 50 MG; Start 10/22/16 at 21:00 Pantoprazole (Protonix Tab) 40 mg DAILY@06 PO Last administered on 10/24/16 06 :00; Admin Dose 40 MG; Start 10/23/16 at 06:00 Sertraline HCl (Zoloft) 200 mg HS PO Last administered on 10/24/16 20:56; Admin Dose 200 MG; Start 10/22/16 at 21:00 Divalproex Sodium (Depakote) 1,000 mg HS PO Last administered on 10/24/16 20: 56; Admin Dose 1,000 MG; Start 10/22/16 at 21:00 Finasteride (Proscar) 5 mg DAILY PO Last administered on 10/24/16 08:54; Admin Dose 5 MG; Start 10/23/16 at 09:00 Furosemide (Lasix) 40 mg DAILY PO Last administered on 10/24/16 08:55; Admin Dose 40 MG; Start 10/22/16 at 17:00 Potassium Chloride (Klor-Con 20) 20 meq DAILY PO Last administered on 08:54; Admin Dose 20 MEQ; Start 10/22/16 at 17:00 Saccharomyces Boulardii (Florastor) 250 mg BID PO Last administered on 20:56; Admin Dose 250 MG; Start 10/22/16 at 21:00 Cholecalciferol (Vitamin D) 2,000 unit DAILY PO Last administered on 10/24/16 08:55; Admin Dose 2,000 UNIT; Start 10/22/16 at 17:00 Atorvastatin Calcium (Lipitor) 40 mg HS PO Last administered on 10/24/16 20:56 ; Admin Dose 40 MG; Start 10/22/16 at 21:00 Alfuzosin HCl (Uroxatral) 10 mg HS PO ; Start 10/22/16 at 21:00 Multivitamins Therapeutic (Theragran) 1 tab DAILY PO Last administered on 08:54; Admin Dose 1 TAB; Start 10/23/16 at 09:00 Docusate Sodium/ Ferrous Fumarate (Len-Sequels) 1 tab BID PO Last administered on 10/24/16 23:47; Admin Dose 1 TAB; Start 10/22/16 at 21:00 Levothyroxine Sodium (Synthroid) 25 mcg DAILY@06 PO Last administered on 06:00; Admin Dose 25 MCG; Start 10/23/16 at 06:00 Enoxaparin Sodium (Lovenox) 40 mg DAILY SC Last administered on 10/24/16 09:00 ; Admin Dose 40 MG; Start 10/22/16 at 22:00 Ondansetron HCl (Zofran Tab) 4 mg Q6H PRN PO NAUSEA AND/OR VOMITING; Start at 17:30 Acetaminophen (Tylenol Tab) 650 mg Q6H PRN PO PAIN LEVEL 1-3 OR FEVER; Start at 17:30 Docusate Sodium (Colace) 100 mg Q12H PRN PO CONSTIPATION; Start 10/22/16 at 17: 30 Zolpidem Tartrate (Ambien) 5 mg QHS PRN PO SLEEP; Start 10/22/16 at 17:30 Polyethyl Glycol/ Propylene Glycol (Systane) 1 drop QID BOTH EYES Last administered on 10/24/16 20:56; Admin Dose 1 DROP; Start 10/22/16 at 21:00 Patient Own Medication 1 ea HS BOTH EYES Last administered on 10/24/16 20:54; Admin Dose 1 EA; Start 10/22/16 at 21:00 Patient Own Medication 1 ea PRN PRN BOTH EYES DRY EYES; Start 10/22/16 at 17:37 Vancomycin HCl (Vanco Iv Per Pharmacy) PER PHARMACY DOSING NOTE XX ; Start 10/22 at 18:00 Eye Lubricant 1 drop 1 drop Q6 PRN BOTH EYES dry eyes; Start 10/22/16 at 18:30 Ferric Sodium Gluconate Complex 125 mg/Sodium Chloride 110 ml @ 110 mls/hr Q24H IVPB Last administered on 10/24/16 11:07; Admin Dose 110 MLS/HR; Start at 11:00; Stop 10/27/16 at 11:59 Vancomycin HCl/ Sodium Chloride (Vancocin/NS) 250 ml @ 83.333 mls/ hr Q24H IVPB Last administered on 10/24/16 20:55; Admin Dose 83.333 MLS/HR; Start at 20:00 Mupirocin (Bactroban) 1 applic BID TOP Last administered on 10/24/16 20:55; Admin Dose 1 APPLIC; Start 10/24/16 at 09:00 JAYLENE MICHEL MD Oct 25, 2016 07:29
[2016-10-25 08:05] VITALS: BP 123/59; RESP 18
[2016-10-25] MEDS: POTASSIUM CHLORIDE (SR) 20 MEQ TAB PO SCH (09:16)
[2016-10-25] MEDS: MUPIROCIN 2% 22 GM OINT TOP SCH ×2 (09:16→20:32)
[2016-10-25] MEDS: FINASTERIDE 5 MG TAB PO SCH (09:16)
[2016-10-25] MEDS: SACCHAROMYCES BOULARDII 250 MG CAP PO SCH ×2 (09:16→20:31)
[2016-10-25] MEDS: FERROUS FUMARATE (SR) TAB PO SCH ×2 (09:16→20:25)
[2016-10-25] MEDS: MULTIVITAMINS THERAPEUTIC TAB PO SCH (09:16)
[2016-10-25] MEDS: CHOLECALCIFEROL 2,000 UNIT CAP PO SCH (09:16)
[2016-10-25] MEDS: FUROSEMIDE 40 MG TAB PO SCH (09:17)
[2016-10-25] MEDS: PROPYLENE GLYCOL/PEG 15 ML OPH BOTH EYES SCH ×4 (09:17→20:30)
[2016-10-25] MEDS: ENOXAPARIN 40 MG/0.4 ML SYG SC SCH (09:25)
--- NOTE | 2016-10-25 10:13 | PN ---
Date/Time of Note Date/Time of Note DATE: 10/25/16 TIME: 10:10 Assessment/Plan VTE Prophylaxis VTE Prophylaxis Intervention: heparin Lines/Catheters IV [facility]from [facility] Urinary Cath still in place: No Assessment/Plan Assessment/Plan 1. Bilateral Leg Cellulitis - improved on IV Vanco. Wound cultures with Pseudomonas but likely contaminant as symptoms improved without treatment. - cont with IV Vanco while in-house, d/c tomorrow on PO augmentin/doxy if sivextro not approved - wound care - muciprocin ointment 2. Positive Blood Culture - Strep Viridans is a contaminant, repeat cultures negative so far - monitor final blood cultures from 10/24 Subjective 24 Hr Interval Summary Free Text/Dictation Feeling better, no acute complaints. Constitutional: improved, no complaints Exam/Review of Systems Vital Signs Vitals Vital Signs Date Time Temp Pulse Resp B/P Pulse Ox O2 Delivery O2 Flow Rate FiO2 10/25/16 08:05 97.8 60 18 123/59 96 10/24/16 20:00 Room Air Intake and Output 10/24/16 10/24/16 10/25/16 15:00 23:00 07:00 Intake Total 110 ml 1600 ml 750 ml Output Total 700 ml 550 ml Balance 110 ml 900 ml 200 ml Exam Constitutional: alert, oriented, well developed Respiratory: clear to auscultation, normal air movement Cardiovascular: nl pulses, regular rate and rhythm Extremities: other (erythema and warmth improved), pitting pedal edema Results Result Diagram: 10/25/16 0636 10/25/16 0636 Results 24 hrs Laboratory Tests Test 10/25/16 06:36 White Blood Count 5.7 Red Blood Count 2.41 L Hemoglobin 8.3 L Hematocrit 25.1 L Mean Corpuscular Volume 104.1 H Mean Corpuscular Hemoglobin 34.4 H Mean Corpuscular Hemoglobin Concent 33.1 Red Cell Distribution Width 12.4 Platelet Count 189 Mean Platelet Volume 9.5 Neutrophils % 70.9 Lymphocytes % 16.4 Monocytes % 9.3 Eosinophils % 2.5 Basophils % 0.5 Nucleated Red Blood Cells % 0.0 Neutrophils # 4.0 Lymphocytes # 0.9 Monocytes # 0.5 Eosinophils # 0.1 Basophils # 0.0 Nucleated Red Blood Cells # 0.0 Sodium Level 141 Potassium Level 4.4 Chloride Level 109 Carbon Dioxide Level 26 Anion Gap 10 Blood Urea Nitrogen 23 H Creatinine 1.05 Glucose Level 99 Calcium Level 8.6 Total Bilirubin 0.0 L Direct Bilirubin 0.00 Indirect Bilirubin 0.0 Aspartate Amino Transf (AST/SGOT) 23 Alanine Aminotransferase (ALT/SGPT) 31 Alkaline Phosphatase 73 Total Protein 6.8 Albumin 3.5 Globulin 3.30 H Albumin/Globulin Ratio 1.06 Medications Medications Current Medications Acetaminophen/ Hydrocodone Bitart ([place] (10/325)) 1 tab Q6H PRN PO MILD PAIN LEVEL 1-3; Start 10/22/16 at 15:30 Acetaminophen/ Hydrocodone Bitart ([place] (10/325)) 2 tab Q6H PRN PO MODERATE PAIN LEVEL 4-6 Last administered on 10/25/16 01:07; Admin Dose 2 TAB; Start at 15:30 Trazodone HCl (Desyrel) 50 mg HS PO Last administered on 10/24/16 20:56; Admin Dose 50 MG; Start 10/22/16 at 21:00 Pantoprazole (Protonix Tab) 40 mg DAILY@06 PO Last administered on 10/24/16 06 :00; Admin Dose 40 MG; Start 10/23/16 at 06:00 Sertraline HCl (Zoloft) 200 mg HS PO Last administered on 10/24/16 20:56; Admin Dose 200 MG; Start 10/22/16 at 21:00 Divalproex Sodium (Depakote) 1,000 mg HS PO Last administered on 10/24/16 20: 56; Admin Dose 1,000 MG; Start 10/22/16 at 21:00 Finasteride (Proscar) 5 mg DAILY PO Last administered on 10/25/16 09:16; Admin Dose 5 MG; Start 10/23/16 at 09:00 Furosemide (Lasix) 40 mg DAILY PO Last administered on 10/25/16 09:17; Admin Dose 40 MG; Start 10/22/16 at 17:00 Potassium Chloride (Klor-Con 20) 20 meq DAILY PO Last administered on 09:16; Admin Dose 20 MEQ; Start 10/22/16 at 17:00 Saccharomyces Boulardii (Florastor) 250 mg BID PO Last administered on 09:16; Admin Dose 250 MG; Start 10/22/16 at 21:00 Cholecalciferol (Vitamin D) 2,000 unit DAILY PO Last administered on 10/25/16 09:16; Admin Dose 2,000 UNIT; Start 10/22/16 at 17:00 Atorvastatin Calcium (Lipitor) 40 mg HS PO Last administered on 10/24/16 20:56 ; Admin Dose 40 MG; Start 10/22/16 at 21:00 Alfuzosin HCl (Uroxatral) 10 mg HS PO ; Start 10/22/16 at 21:00 Multivitamins Therapeutic (Theragran) 1 tab DAILY PO Last administered on 09:16; Admin Dose 1 TAB; Start 10/23/16 at 09:00 Docusate Sodium/ Ferrous Fumarate (Len-Sequels) 1 tab BID PO Last administered on 10/25/16 09:16; Admin Dose 1 TAB; Start 10/22/16 at 21:00 Levothyroxine Sodium (Synthroid) 25 mcg DAILY@06 PO Last administered on 06:00; Admin Dose 25 MCG; Start 10/23/16 at 06:00 Enoxaparin Sodium (Lovenox) 40 mg DAILY SC Last administered on 10/25/16 09:25 ; Admin Dose 40 MG; Start 10/22/16 at 22:00 Ondansetron HCl (Zofran Tab) 4 mg Q6H PRN PO NAUSEA AND/OR VOMITING; Start at 17:30 Acetaminophen (Tylenol Tab) 650 mg Q6H PRN PO PAIN LEVEL 1-3 OR FEVER; Start at 17:30 Docusate Sodium (Colace) 100 mg Q12H PRN PO CONSTIPATION; Start 10/22/16 at 17: 30 Zolpidem Tartrate (Ambien) 5 mg QHS PRN PO SLEEP; Start 10/22/16 at 17:30 Polyethyl Glycol/ Propylene Glycol (Systane) 1 drop QID BOTH EYES Last administered on 10/25/16 09:17; Admin Dose 1 DROP; Start 10/22/16 at 21:00 Patient Own Medication 1 ea HS BOTH EYES Last administered on 10/24/16 20:54; Admin Dose 1 EA; Start 10/22/16 at 21:00 Patient Own Medication 1 ea PRN PRN BOTH EYES DRY EYES; Start 10/22/16 at 17:37 Vancomycin HCl (Vanco Iv Per Pharmacy) PER PHARMACY DOSING NOTE XX ; Start 10/22 at 18:00 Eye Lubricant 1 drop 1 drop Q6 PRN BOTH EYES dry eyes; Start 10/22/16 at 18:30 Ferric Sodium Gluconate Complex 125 mg/Sodium Chloride 110 ml @ 110 mls/hr Q24H IVPB Last administered on 10/24/16 11:07; Admin Dose 110 MLS/HR; Start at 11:00; Stop 10/27/16 at 11:59 Vancomycin HCl/ Sodium Chloride (Vancocin/NS) 250 ml @ 83.333 mls/ hr Q24H IVPB Last administered on 10/24/16 20:55; Admin Dose 83.333 MLS/HR; Start at 20:00 Mupirocin (Bactroban) 1 applic BID TOP Last administered on 10/25/16 09:16; Admin Dose 1 APPLIC; Start 10/24/16 at 09:00 RUTH ANN RUTH MD Oct 25, 2016 10:13
[2016-10-25] MEDS: SOD FERRIC GLUC COMPLX 125 MG in SOD CHLORIDE 0.9% 100 ML IVPB SCH (11:54)
[2016-10-25 19:26] VITALS: BP 157/70; RESP 16
[2016-10-25] MEDS: SERTRALINE 100 MG TAB PO SCH (20:25)
[2016-10-25] MEDS: traZODone 50 MG TAB PO SCH (20:25)
[2016-10-25] MEDS: ATORVASTATIN 40 MG TAB PO SCH (20:25)
[2016-10-25] MEDS: VANCOMYCIN 1.25 GM in SOD CHLORIDE 0.9% 250 ML IVPB SCH (20:25)
[2016-10-25] MEDS: DIVALPROEX (EC) 500 MG TAB PO SCH (20:29)
[2016-10-25] MEDS: TRAVATAN 0.004% BOTH EYES SCH (20:30)
[2016-10-25] MEDS: ALFUZOSIN (SR) 10 MG TAB PO SCH (20:31)
[2016-10-26] MEDS: PANTOPRAZOLE (EC) 40 MG TAB PO SCH (05:49)
[2016-10-26] MEDS: LEVOTHYROXINE 25 MCG TAB PO SCH (05:49)
[2016-10-26 05:56] LABS: ADD SCAN DIFF NO
[2016-10-26 06:00] LABS: BASOPHILS % 0.5 % (0.0-2.0); EOSINOPHILS # 0.2 10^3/ul (0.0-0.5); EOSINOPHILS % 2.9 % (0.0-7.0); HEMOGLOBIN 8.9 g/dl (14.0-18.0); LYMPHOCYTES # 1.1 10^3/ul (0.8-2.9); LYMPHOCYTES % 14.7 % (15.0-51.0); MEAN CORPUSCULAR HEMOGLOBIN 34.5 pg (29.0-33.0); MEAN CORPUSCULAR VOLUME 104.7 fl (82.0-101.0); MEAN PLATELET VOLUME 10.2 fl (7.4-10.4); MONOCYTE # 0.7 10^3/ul (0.3-0.9); MONOCYTES % 9.5 % (0.0-11.0); NEUTROPHIL # 5.5 10^3/ul (1.6-7.5); NEUTROPHILS % 71.9 % (39.0-77.0); PLATELET COUNT 211 10^3/UL (140-415); RED BLOOD COUNT 2.58 10^6/ul (4.70-6.10); RED CELL DISTRIBUTION WIDTH 12.5 % (11.5-14.5); WHITE BLOOD COUNT 7.6 10^3/ul (4.8-10.8)
--- NOTE | 2016-10-26 07:54 | CONS ---
Date/Time of Note Date/Time of Note DATE: 10/26/16 TIME: 07:49 Assessment/Plan Assessment/Plan Chief Complaint/Hosp Course 1) RLE cellulitis hx of nasal MRSA continue with IV vanco will have case management check to see if his health plans cover sivextro which is an oral 6 day regimen (similar to linezolid but without the usual problem with lowering platelets or drug interactions) get wound cx of site and nasal swab for MRSA if sivextro is covered then can change to po likely tomorrow and hold only lipitor while on sivextro 10/24 - case management is working on his sivextro thru [facility], it is delayed since all of pt's secondary insurances were not on his face sheet continue with IV vanco at present due to positive blood cx his cellulitis is improved wound cx is likely growing a proteus which is most likely a contaminant nasal cx is still pending 10/25 - calf continues to improve, pseudomonas grew from cx but it has improved without treatment for this can change vanco to sivextro or to augmentin/doxy if sivextro is not covered nasal cx grew MRSA 10/26 - still do not know if sivextro is covered, will d/c vanco and start augmentin/doxy MRSA did grow from the wound and it is sensitive to doxy Rx left to nurse for a 7 day course of augmentin/doxy unable to use levaquin due to pt being on trazadone (QT prolongation) ok for D/C from ID perspective 2) Diarrhea 10/24 - stool for c.dif was sent pt is on a probiotic 10/25 - c.dif was neg 3) GPC in blood cx (strep viridans) 10/24 - will repeat blood cx today unsure if this is a contaminant or true infection but vanco should cover 10/25 - strep viridans from blood cx is likely a contaminant, no need for further investigation or treatment for this Problems: Consultation Date/Type/Reason Admit Date/Time Oct 23, 2016 at 10:15 Initial Consult Date 10/23/16 Type of Consultation: ID 24 HR Interval Summary Free Text/Dictation doing well no pain to L leg no N, V, D Exam/Review of Systems Vital Signs Vitals Vital Signs Date Time Temp Pulse Resp B/P Pulse Ox O2 Delivery O2 Flow Rate FiO2 10/25/16 19:26 98.0 60 16 157/70 97 10/24/16 20:00 Room Air Intake and Output 10/25/16 10/25/16 10/26/16 15:00 23:00 07:00 Intake Total 1590 ml 650 ml Output Total 650 ml 800 ml Balance 940 ml -150 ml Exam Constitutional: alert, oriented Eyes: nl sclera ENMT: mucosa pink and moist Respiratory: clear to auscultation Extremities: other (R calf redness is less bright and less surface area) Results Result Diagram: 10/26/16 0510 10/25/16 0636 Results 24 hrs Laboratory Tests Test 10/25/16 19:10 10/26/16 05:10 Vancomycin Level Trough 12.9 White Blood Count 7.6 # Red Blood Count 2.58 L Hemoglobin 8.9 L Hematocrit 27.0 L Mean Corpuscular Volume 104.7 H Mean Corpuscular Hemoglobin 34.5 H Mean Corpuscular Hemoglobin Concent 33.0 Red Cell Distribution Width 12.5 Platelet Count 211 Mean Platelet Volume 10.2 Neutrophils % 71.9 Lymphocytes % 14.7 L Monocytes % 9.5 Eosinophils % 2.9 Basophils % 0.5 Nucleated Red Blood Cells % 0.0 Neutrophils # 5.5 Lymphocytes # 1.1 Monocytes # 0.7 Eosinophils # 0.2 Basophils # 0.0 Nucleated Red Blood Cells # 0.0 Medications Medications Current Medications Acetaminophen/ Hydrocodone Bitart ([place] (10/325)) 1 tab Q6H PRN PO MILD PAIN LEVEL 1-3; Start 10/22/16 at 15:30 Acetaminophen/ Hydrocodone Bitart ([place] (10/325)) 2 tab Q6H PRN PO MODERATE PAIN LEVEL 4-6 Last administered on 10/25/16 01:07; Admin Dose 2 TAB; Start at 15:30 Trazodone HCl (Desyrel) 50 mg HS PO Last administered on 10/25/16 20:25; Admin Dose 50 MG; Start 10/22/16 at 21:00 Pantoprazole (Protonix Tab) 40 mg DAILY@06 PO Last administered on 10/26/16 05: 49; Admin Dose 40 MG; Start 10/23/16 at 06:00 Sertraline HCl (Zoloft) 200 mg HS PO Last administered on 10/25/16 20:25; Admin Dose 200 MG; Start 10/22/16 at 21:00 Divalproex Sodium (Depakote) 1,000 mg HS PO Last administered on 10/25/16 20: 29; Admin Dose 1,000 MG; Start 10/22/16 at 21:00 Finasteride (Proscar) 5 mg DAILY PO Last administered on 10/25/16 09:16; Admin Dose 5 MG; Start 10/23/16 at 09:00 Furosemide (Lasix) 40 mg DAILY PO Last administered on 10/25/16 09:17; Admin Dose 40 MG; Start 10/22/16 at 17:00 Potassium Chloride (Klor-Con 20) 20 meq DAILY PO Last administered on 09:16; Admin Dose 20 MEQ; Start 10/22/16 at 17:00 Saccharomyces Boulardii (Florastor) 250 mg BID PO Last administered on 20:31; Admin Dose 250 MG; Start 10/22/16 at 21:00 Cholecalciferol (Vitamin D) 2,000 unit DAILY PO Last administered on 10/25/16 09:16; Admin Dose 2,000 UNIT; Start 10/22/16 at 17:00 Atorvastatin Calcium (Lipitor) 40 mg HS PO Last administered on 10/25/16 20:25 ; Admin Dose 40 MG; Start 10/22/16 at 21:00 Alfuzosin HCl (Uroxatral) 10 mg HS PO ; Start 10/22/16 at 21:00 Multivitamins Therapeutic (Theragran) 1 tab DAILY PO Last administered on 09:16; Admin Dose 1 TAB; Start 10/23/16 at 09:00 Docusate Sodium/ Ferrous Fumarate (Len-Sequels) 1 tab BID PO Last administered on 10/25/16 20:25; Admin Dose 1 TAB; Start 10/22/16 at 21:00 Levothyroxine Sodium (Synthroid) 25 mcg DAILY@06 PO Last administered on 05:49; Admin Dose 25 MCG; Start 10/23/16 at 06:00 Enoxaparin Sodium (Lovenox) 40 mg DAILY SC Last administered on 10/25/16 09:25 ; Admin Dose 40 MG; Start 10/22/16 at 22:00 Ondansetron HCl (Zofran Tab) 4 mg Q6H PRN PO NAUSEA AND/OR VOMITING; Start at 17:30 Acetaminophen (Tylenol Tab) 650 mg Q6H PRN PO PAIN LEVEL 1-3 OR FEVER; Start at 17:30 Docusate Sodium (Colace) 100 mg Q12H PRN PO CONSTIPATION; Start 10/22/16 at 17: 30 Zolpidem Tartrate (Ambien) 5 mg QHS PRN PO SLEEP; Start 10/22/16 at 17:30 Polyethyl Glycol/ Propylene Glycol (Systane) 1 drop QID BOTH EYES Last administered on 10/25/16 20:30; Admin Dose 1 DROP; Start 10/22/16 at 21:00 Patient Own Medication 1 ea HS BOTH EYES Last administered on 10/25/16 20:30; Admin Dose 1 EA; Start 10/22/16 at 21:00 Patient Own Medication 1 ea PRN PRN BOTH EYES DRY EYES; Start 10/22/16 at 17:37 Vancomycin HCl (Vanco Iv Per Pharmacy) PER PHARMACY DOSING NOTE XX ; Start 10/22 at 18:00 Eye Lubricant 1 drop 1 drop Q6 PRN BOTH EYES dry eyes; Start 10/22/16 at 18:30 Ferric Sodium Gluconate Complex 125 mg/Sodium Chloride 110 ml @ 110 mls/hr Q24H IVPB Last administered on 10/25/16 11:54; Admin Dose 110 MLS/HR; Start at 11:00; Stop 10/27/16 at 11:59 Vancomycin HCl/ Sodium Chloride (Vancocin/NS) 250 ml @ 83.333 mls/ hr Q24H IVPB Last administered on 10/25/16 20:25; Admin Dose 83.333 MLS/HR; Start at 20:00 Mupirocin (Bactroban) 1 applic BID TOP Last administered on 10/25/16 20:32; Admin Dose 1 APPLIC; Start 10/24/16 at 09:00 JAYLENE MICHEL MD October 26, 2016 07:54
[2016-10-26 08:07] VITALS: BP 145/67; RESP 20
[2016-10-26] MEDS: POTASSIUM CHLORIDE (SR) 20 MEQ TAB PO SCH (08:55)
[2016-10-26] MEDS: SACCHAROMYCES BOULARDII 250 MG CAP PO SCH ×2 (08:55→20:35)
[2016-10-26] MEDS: FERROUS FUMARATE (SR) TAB PO SCH ×2 (08:55→20:35)
[2016-10-26] MEDS: CHOLECALCIFEROL 2,000 UNIT CAP PO SCH (08:56)
[2016-10-26] MEDS: FUROSEMIDE 40 MG TAB PO SCH (08:56)
[2016-10-26] MEDS: MULTIVITAMINS THERAPEUTIC TAB PO SCH (08:56)
[2016-10-26] MEDS: DOXYCYCLINE 100 MG TAB PO SCH ×2 (08:56→20:35)
[2016-10-26] MEDS: FINASTERIDE 5 MG TAB PO SCH (08:56)
[2016-10-26] MEDS: MUPIROCIN 2% 22 GM OINT TOP SCH ×3 (08:57→20:36)
[2016-10-26] MEDS: PROPYLENE GLYCOL/PEG 15 ML OPH BOTH EYES SCH ×4 (08:59→20:40)
[2016-10-26] MEDS: ENOXAPARIN 40 MG/0.4 ML SYG SC SCH (09:02)
[2016-10-26] MEDS: AMOXICILLIN/CLAV 875 MG TAB PO SCH ×2 (11:52→20:35)
[2016-10-26] MEDS: SOD FERRIC GLUC COMPLX 125 MG in SOD CHLORIDE 0.9% 100 ML IVPB SCH (11:52)
[2016-10-26] MEDS ORDERED: MUPIROCIN 2% 22 GM OINT TOP SCH (14:00)
--- NOTE | 2016-10-26 14:00 | PN ---
Date/Time of Note Date/Time of Note DATE: 10/26/16 TIME: 13:50 Assessment/Plan VTE Prophylaxis VTE Prophylaxis Intervention: LMWH Lines/Catheters [facility] (from [facility] Urinary Cath still in place: No Assessment/Plan Chief Complaint/Hosp Course I. R lower leg cellulitis/stasis dermatitis , chronic lymphedema . He is growing MRSA from R leg wound . He is on appropriate antibiotics . He will need home health care and follow up with [facility] when he is discharged .Will start discharge planning today . 2. Chronic anemia 3. CKD 4. Bipolar disorder Problems: Subjective 24 Hr Interval Summary Free Text/Dictation He is sleeping .He arouses easily and has no new complaints . Constitutional: no complaints Cardiovascular: no complaints Gastrointestinal: no complaints Genitourinary: no complaints Exam/Review of Systems Vital Signs Vitals Vital Signs Date Time Temp Pulse Resp B/P Pulse Ox O2 Delivery O2 Flow Rate FiO2 10/26/16 08:07 98.3 60 20 145/67 95 10/24/16 20:00 Room Air Intake and Output 10/25/16 10/25/16 10/26/16 15:00 23:00 07:00 Intake Total 1590 ml 650 ml Output Total 650 ml 800 ml Balance 940 ml -150 ml Results Result Diagram: 10/26/16 0510 10/25/16 0636 Results 24 hrs Laboratory Tests Test 10/25/16 19:10 10/26/16 05:10 Vancomycin Level Trough 12.9 White Blood Count 7.6 # Red Blood Count 2.58 L Hemoglobin 8.9 L Hematocrit 27.0 L Mean Corpuscular Volume 104.7 H Mean Corpuscular Hemoglobin 34.5 H Mean Corpuscular Hemoglobin Concent 33.0 Red Cell Distribution Width 12.5 Platelet Count 211 Mean Platelet Volume 10.2 Neutrophils % 71.9 Lymphocytes % 14.7 L Monocytes % 9.5 Eosinophils % 2.9 Basophils % 0.5 Nucleated Red Blood Cells % 0.0 Neutrophils # 5.5 Lymphocytes # 1.1 Monocytes # 0.7 Eosinophils # 0.2 Basophils # 0.0 Nucleated Red Blood Cells # 0.0 Medications Medications Current Medications Acetaminophen/ Hydrocodone Bitart ([place] (10/325)) 1 tab Q6H PRN PO MILD PAIN LEVEL 1-3; Start 10/22/16 at 15:30 Acetaminophen/ Hydrocodone Bitart ([place] (10/325)) 2 tab Q6H PRN PO MODERATE PAIN LEVEL 4-6 Last administered on 10/25/16 01:07; Admin Dose 2 TAB; Start at 15:30 Trazodone HCl (Desyrel) 50 mg HS PO Last administered on 10/25/16 20:25; Admin Dose 50 MG; Start 10/22/16 at 21:00 Pantoprazole (Protonix Tab) 40 mg DAILY@06 PO Last administered on 10/26/16 05: 49; Admin Dose 40 MG; Start 10/23/16 at 06:00 Sertraline HCl (Zoloft) 200 mg HS PO Last administered on 10/25/16 20:25; Admin Dose 200 MG; Start 10/22/16 at 21:00 Divalproex Sodium (Depakote) 1,000 mg HS PO Last administered on 10/25/16 20: 29; Admin Dose 1,000 MG; Start 10/22/16 at 21:00 Finasteride (Proscar) 5 mg DAILY PO Last administered on 10/26/16 08:56; Admin Dose 5 MG; Start 10/23/16 at 09:00 Furosemide (Lasix) 40 mg DAILY PO Last administered on 10/26/16 08:56; Admin Dose 40 MG; Start 10/22/16 at 17:00 Potassium Chloride (Klor-Con 20) 20 meq DAILY PO Last administered on 10/26/16 08:55; Admin Dose 20 MEQ; Start 10/22/16 at 17:00 Saccharomyces Boulardii (Florastor) 250 mg BID PO Last administered on 08:55; Admin Dose 250 MG; Start 10/22/16 at 21:00 Cholecalciferol (Vitamin D) 2,000 unit DAILY PO Last administered on 10/26/16 08:56; Admin Dose 2,000 UNIT; Start 10/22/16 at 17:00 Atorvastatin Calcium (Lipitor) 40 mg HS PO Last administered on 10/25/16 20:25 ; Admin Dose 40 MG; Start 10/22/16 at 21:00 Alfuzosin HCl (Uroxatral) 10 mg HS PO ; Start 10/22/16 at 21:00 Multivitamins Therapeutic (Theragran) 1 tab DAILY PO Last administered on 08:56; Admin Dose 1 TAB; Start 10/23/16 at 09:00 Docusate Sodium/ Ferrous Fumarate (Len-Sequels) 1 tab BID PO Last administered on 10/26/16 08:55; Admin Dose 1 TAB; Start 10/22/16 at 21:00 Levothyroxine Sodium (Synthroid) 25 mcg DAILY@06 PO Last administered on 05:49; Admin Dose 25 MCG; Start 10/23/16 at 06:00 Enoxaparin Sodium (Lovenox) 40 mg DAILY SC Last administered on 10/26/16 09:02 ; Admin Dose 40 MG; Start 10/22/16 at 22:00 Ondansetron HCl (Zofran Tab) 4 mg Q6H PRN PO NAUSEA AND/OR VOMITING; Start at 17:30 Acetaminophen (Tylenol Tab) 650 mg Q6H PRN PO PAIN LEVEL 1-3 OR FEVER; Start at 17:30 Docusate Sodium (Colace) 100 mg Q12H PRN PO CONSTIPATION; Start 10/22/16 at 17: 30 Zolpidem Tartrate (Ambien) 5 mg QHS PRN PO SLEEP; Start 10/22/16 at 17:30 Polyethyl Glycol/ Propylene Glycol (Systane) 1 drop QID BOTH EYES Last administered on 10/26/16 13:09; Admin Dose 1 DROP; Start 10/22/16 at 21:00 Patient Own Medication 1 ea HS BOTH EYES Last administered on 10/25/16 20:30; Admin Dose 1 EA; Start 10/22/16 at 21:00 Patient Own Medication 1 ea PRN PRN BOTH EYES DRY EYES; Start 10/22/16 at 17:37 Eye Lubricant 1 drop 1 drop Q6 PRN BOTH EYES dry eyes; Start 10/22/16 at 18:30 Ferric Sodium Gluconate Complex/ Sodium Chloride (Ferrlecit/NS) 110 ml @ 110 mls/hr Q24H IVPB Last administered on 10/26/16 11:52; Admin Dose 110 MLS/HR; Start 10/23/16 at 11:00; Stop 10/27/16 at 11:59 Mupirocin (Bactroban) 1 applic BID TOP Last administered on 10/26/16 08:57; Admin Dose 1 APPLIC; Start 10/24/16 at 09:00 Amoxicillin/ Clavulanate Potassium (Augmentin) 875 mg BID PO Last administered on 10/26/16 11:52; Admin Dose 875 MG; Start 10/26/16 at 09:00 Doxycycline Hyclate (Vibramycin) 100 mg BID PO Last administered on 10/26/16 08 :56; Admin Dose 100 MG; Start 10/26/16 at 09:00 Mupirocin (Bactroban) 1 applic DAILY TOP ; Start 10/26/16 at 14:00 RAMIRO CLEMENT MD October 26, 2016 14:00
[2016-10-26] MEDS: SERTRALINE 100 MG TAB PO SCH (20:34)
[2016-10-26] MEDS: DIVALPROEX (EC) 500 MG TAB PO SCH (20:35)
[2016-10-26] MEDS: ATORVASTATIN 40 MG TAB PO SCH (20:35)
[2016-10-26] MEDS: traZODone 50 MG TAB PO SCH (20:35)
[2016-10-26] MEDS: TRAVATAN 0.004% BOTH EYES SCH (20:37)
[2016-10-26] MEDS: ALFUZOSIN (SR) 10 MG TAB PO SCH (20:39)
[2016-10-26 21:33] VITALS: BP 144/79; RESP 20
[2016-10-27] MEDS: LEVOTHYROXINE 25 MCG TAB PO SCH (06:03)
[2016-10-27] MEDS: PANTOPRAZOLE (EC) 40 MG TAB PO SCH (06:03)
[2016-10-27 09:33] VITALS: BP 130/76; RESP 18
[2016-10-27] MEDS: DOXYCYCLINE 100 MG TAB PO SCH (09:59)
[2016-10-27] MEDS: CHOLECALCIFEROL 2,000 UNIT CAP PO SCH (09:59)
[2016-10-27] MEDS: AMOXICILLIN/CLAV 875 MG TAB PO SCH (09:59)
[2016-10-27] MEDS: FINASTERIDE 5 MG TAB PO SCH (09:59)
[2016-10-27] MEDS: POTASSIUM CHLORIDE (SR) 20 MEQ TAB PO SCH (09:59)
[2016-10-27] MEDS: SACCHAROMYCES BOULARDII 250 MG CAP PO SCH (10:00)
[2016-10-27] MEDS: FERROUS FUMARATE (SR) TAB PO SCH (10:00)
[2016-10-27] MEDS: MULTIVITAMINS THERAPEUTIC TAB PO SCH (10:00)
[2016-10-27] MEDS: FUROSEMIDE 40 MG TAB PO SCH (10:00)
[2016-10-27] MEDS: MUPIROCIN 2% 22 GM OINT TOP SCH ×2 (10:01→10:02)
[2016-10-27] MEDS: PROPYLENE GLYCOL/PEG 15 ML OPH BOTH EYES SCH ×3 (10:02→17:00)
[2016-10-27] MEDS: ENOXAPARIN 40 MG/0.4 ML SYG SC SCH (10:05)
[2016-10-27] MEDS: SOD FERRIC GLUC COMPLX 125 MG in SOD CHLORIDE 0.9% 100 ML IVPB SCH (12:07)
--- NOTE | 2016-10-27 13:56 | PDOCDIS ---
Discharge Instructions CONDITION Patient Condition: Fair HOME CARE INSTRUCTIONS: Diet Instructions: Reduced SodiumSpecial Diet: REGULAR ACTIVITY: Activity Restrictions: Slowly Increase Activity Rest between Activity Avoid heavy lifting Do not operate Machinery Bathing Restrictions: Shower FOLLOW UP/APPOINTMENTS Appointments [facility] and RAMIRO Jean MD October 27, 2016 13:55
--- NOTE | 2016-10-27 14:25 | PREOPHP ---
DATE OF ADMISSION: 10/23/2016 HISTORY OF PRESENT ILLNESS AND HOSPITAL COURSE: This 85-year-old man was [facility] to the [facility] the [facility] after he presented with a traumatized right lower leg with a surrounding c ellulitis. This patient has a long history of lower extremity lymphedema, stasis dermatitis of the lower extremities, and recurrent lower extremity cellulitis. The patient was seen at the [facility] and had an open wound on his right lower leg. This was surrounded by erythema and was felt to be a cellulitis. The patient was admitted to the hospital for IV antibiotics. The patient had b een on clindamycin which was discontinued. The patient got Augmentin and doxycycline which was orde red by Dr. Corado, a local infectious disease specialist. The patient was ambulatory at the time of d ischarge. He was doing better. The patient was in fair condition at the time of discharge. The jennifer alfaro has other medical problems including chronic anemia, chronic kidney disease, bipolar disorder. He will be sent home on his routine medications which include the followin. Azulfidine 10 mg a day. 2. Simvastatin 40 mg a day. 3. Depakote 500 mg tablets 2 at bedtime. 4. Sertraline 200 mg at bedtime. 5. Trazodone 50 mg at bedtime. 6. Furosemide 80 mg a day. 7. Potassium chloride 20 mEq a day. 8. Systane gel eyedrops. 9. Travatan eyedrops. 10. Levothyroxine 25 mcg daily. 11. Folic acid 1 mg a day. 12. Finasteride 5 mg a day. IMPRESSION: The patient will follow up with me in my office in 1 week. The patient will also be se en at [facility] in 1 week. The patient did grow MRSA from the right leg wound. Dr. Corado was aware and ordered the above antibi otics to be given for 1 more week to complete a 10-day course. DISCHARGE DIAGNOSES: 1. Right lower leg cellulitis with methicillin-resistant Staphylococcus aureus. 2. Chronic kidney disease. 3. Chronic lower extremity lymphedema. 4. Bipolar disorder. 5. Anemia of chronic disease. Dictated By: RAMIRO CLEMENT MD, ND/ROXY Conf#: [id number] DID#: [id number]
== END 2016-10-27 18:55 | disposition home health service (06) | DRG 603 ==
LOC: MS2 13:05 → INTOOBSV 13:05 → OBSVTOIN 10-23 10:15 → MS2 10-24 20:28
PROVIDERS: ADMIT Internal Medicine; ATTEND Internal Medicine
DX: L03.115 Cellulitis of right lower limb (principal); B96.5 Pseudomonas (aeruginosa) (mallei) (pseudomallei) as the cause of diseases classified elsewhere; I87.2 Venous insufficiency (chronic) (peripheral); D63.8 Anemia in other chronic diseases classified elsewhere; F31.9 Bipolar disorder, unspecified; K21.9 Gastro-esophageal reflux disease without esophagitis; I25.10 Atherosclerotic heart disease of native coronary artery without angina pectoris; B96.4 Proteus (mirabilis) (morganii) as the cause of diseases classified elsewhere; B95.62 Methicillin resistant Staphylococcus aureus infection as the cause of diseases classified elsewhere; D64.9 Anemia, unspecified; R19.7 Diarrhea, unspecified; I89.0 Lymphedema, not elsewhere classified; L03.116 Cellulitis of left lower limb; Z72.0 Tobacco use; Z87.442 Personal history of urinary calculi; Z95.0 Presence of cardiac pacemaker
CPT/HCPCS: 71010; 80048; 80053; 80202; 81003; 82270; 82607; 82728; 83036; 83540; 83735; 84100; 85025; 85610; 85651; 85730; 86140; 87040; 87070; 87075; 87081; 93005; 93970; 99217; G0378; J1650; J2916; J3370; J3420; J7050

== ENCOUNTER 2018-11-01 12:09 | Emergency (ER) | payer MEDICARE, BC ==
[~2018-11-01] VITALS: Ht 165.1 cm; Wt 77.3 kg
[~2018-11-01 12:09] MED LIST changes: -CLIN-73 PO; +DIVA-48 PO; -DIVA500T7 PO; -LEVO25TA53 PO; +LEVO25TA6 PO; +TRAZ-111 PO; -TRAZ50TA18 PO
[2018-11-01 12:38] VITALS: Ht 165.1 cm; Wt 77.3 kg
[2018-11-01] MEDS ORDERED: IBUP-1561 PO (13:12)
[2018-11-01 13:26] VITALS: BP 125/62; PULSE 79; RESP 17
--- NOTE | 2018-11-01 17:14 | ERD ---
ER Documentation Chief Complaint Chief Complaint code green from [facility] s/p mechanical fall in the bathroom HPI 87-year-old man brought down to the emergency department from pre-amputation [place] ter after mechanical fall. Patient does recall the entire episode and states the left lateral scalp struck the door on his way down but he denies loss of consciousness, no nausea or vomiting, no headache, no blurry vision. He states he was able to ambulate after the fall and complains of mild anterior right hip pain but denies decreased range of motion. Patient denies paresis or paresthesias, no chest pain or shortness of breath ROS All systems reviewed and are negative except as per history of present illness. Medications Home Meds Active Scripts Ibuprofen* (Motrin*) 400 Mg Tab, 400 MG PO Q8 PRN for PAIN AND/OR INFLAMMATION, #30 TAB Prov:MARIZA HARE MD 11/01/18 Reported Medications Potassium Chloride* (Potassium Chloride*) 20 Meq Tablet.er, 20 MEQ PO DAILY, TAB.SA 07/01/16 Levothyroxine Sodium* (Levothyroxine Sodium*) 25 Mcg Tablet, 25 MCG PO BEFORE BREAKFAST, #30 TAB 04/02/16 Alfuzosin Hcl* (Alfuzosin Hcl*) 10 Mg Tab.er.24h, 10 MG PO DAILY, #30 TAB.SA 03/14/16 Finasteride* (Finasteride*) 5 Mg Tablet, 5 MG PO DAILY, TAB 03/14/16 Furosemide* (Furosemide*) 80 Mg Tablet, 80 MG PO DAILY, #30 TAB 03/14/16 Folic Acid* (Folic Acid*) 1 Mg Tablet, 1 MG PO BID, TAB 03/14/16 Propylene Glycol/Peg 400 (SYSTANE GEL EYE DROPS) 10 Ml Drops.gel, 1 DROP BOTH EYES QID, #1 BOTTLE 03/14/16 Travoprost* (Travatan*) 0.004%-2.5 Ml Opht, 1 DROP BOTH EYES QHS, #1 BOTTLE 03/14/16 Simvastatin* (Zocor*) 40 Mg Tablet, 40 MG PO QHS, #30 TAB 03/14/16 Trazodone Hcl* (Trazodone Hcl*) 50 Mg Tablet, 50 MG PO HS, TAB 06/24/14 Sertraline Hcl* (Sertraline Hcl*) 100 Mg Tablet, 200 MG PO QHS, TAB 06/24/14 Divalproex Sodium* (Depakote*) 500 Mg Tablet.dr, 1000 MG PO QHS, TAB 06/24/14 Allergies Allergies: Coded Allergies: Sulfa (Sulfonamide Antibiotics) (Unverified Allergy, Severe, HIVES, 07/01/16) PMhx/Soc Osteoarthritis, dyslipidemia, hypothyroidism, hypertension History of Surgery: Yes (Tonsillectomy,Left ear,Kidney stons) Anesthesia Reaction: No Hx Neurological Disorder: No Hx Respiratory Disorders: No Hx Cardiac Disorders: Yes (Low HR,s/p pacemaker, cholesterol) Hx Psychiatric Problems: Yes (Bipolar) Hx Miscellaneous Medical Probl: No Hx Alcohol Use: No Hx Substance Use: No Hx Tobacco Use: No Smoking Status: Never smoker Physical Exam Vitals Vital Signs Date Temp Pulse Resp B/P (MAP) Pulse Ox O2 O2 Flow FiO2 Time Delivery Rate 11/01/18 96.9 79 17 125/62 100 Room Air 13:26 (83) 11/01/18 97.8 60 16 152/72 99 12:38 (98) Physical Exam Const: No acute distress, afebrile Head: Normocephalic atraumatic, no cervical spine step-off deformities or tenderness Eyes: Normal Conjunctiva ENT: Normal External Ears, Nose and Mouth. Neck: Full range of motion. No meningismus. Resp: Clear to auscultation bilaterally Cardio: Regular rate and rhythm, no murmurs Abd: Soft, non tender, non distended. Normal bowel sounds Skin: No petechiae or rashes. Patient has no hematomas, ecchymosis, abrasions, contusions Back: No midline or flank tenderness Ext: No cyanosis, edematous bilaterally, calves are symmetrical and wrapped with bandage. Distal pulses equal bilateral, no tenderness to the lateral hips noted Neur: Awake and alert x3, no focal deficits or facial asymmetry, pupils equal round reactive to light Psych: Normal Mood and Affect Procedures/MDM X-ray Pelvis 1V Interpreted by me: Bones: No fracture Joints: Osteoarthritic changes to the bilateral hip joints Foreign body: None Patient was able to ambulate without difficulty and had full range of motion without tenderness at the hip joints Patient feels much better at this time, and vital signs are normal, symptoms have improved. I did give strict instructions to return to the ED if symptoms continue or worsen, patient will otherwise follow-up with primary care physician. Patient understood instructions and agreed to plan. Disclaimer: Inadvertent spelling and grammatical errors are likely due to EHR/dictation software use and do not reflect on the overall quality of patient care. Also, please note that the electronic time recorded on this note does not necessarily reflect the actual time of the patient encounter. Departure Diagnosis: Primary Impression: Fall Encounter type: initial encounter Qualified Codes: W19.XXXA - Unspecified fall, initial encounter Additional Impression: Fall with no significant injury Encounter type: initial encounter Qualified Codes: W19.XXXA - Unspecified fall, initial encounter Condition: Good Patient Instructions: Fall, Mechanical, Hip Strain, Fall Prevention MARIZA HARE MD November 01, 2018 17:14
== END 2018-11-01 13:45 | disposition home or self-care (01) ==
LOC: E/R 12:09
DX: M25.551 Pain in right hip (principal); E03.9 Hypothyroidism, unspecified; I10 Essential (primary) hypertension; Z95.0 Presence of cardiac pacemaker
CPT/HCPCS: 72170

== ENCOUNTER 2019-03-05 06:22 | Emergency (ER) | payer MEDICARE, BC ==
[~2019-03-05] VITALS: Ht 175.3 cm; Wt 74.9 kg
[~2019-03-05 06:22] MED LIST changes: +CEPH500C PO; +IBUP-1561 PO
[2019-03-05 06:27] VITALS: Ht 175.3 cm; Wt 74.9 kg
[2019-03-05] MEDS ORDERED: CEPHALEXIN 500 MG CAP PO ONE (07:30)
[2019-03-05 07:48] VITALS: BP 136/82; PULSE 77; RESP 20
== END 2019-03-05 07:47 | disposition home or self-care (01) ==
LOC: E/R 06:22
DX: L03.115 Cellulitis of right lower limb (principal); R40.2142 Coma scale, eyes open, spontaneous, at arrival to emergency department; R40.2362 Coma scale, best motor response, obeys commands, at arrival to emergency department; R40.2252 Coma scale, best verbal response, oriented, at arrival to emergency department; Z95.0 Presence of cardiac pacemaker
CPT/HCPCS: 99283

== ENCOUNTER 2019-04-26 05:09 | Emergency (ER) | payer MEDICARE, BC ==
[~2019-04-26] VITALS: Ht 165.1 cm; Wt 77.7 kg
[2019-04-26 05:13] VITALS: Ht 165.1 cm; Wt 77.7 kg
[2019-04-26 06:13] VITALS: BP 149/97; PULSE 83; RESP 18
== END 2019-04-26 07:44 | disposition home or self-care (01) ==
LOC: E/R 05:09
DX: M79.89 Other specified soft tissue disorders (principal); R60.9 Edema, unspecified
CPT/HCPCS: 99282